=== PATIENT | female | born 1970 | race Two or more races ===

== ENCOUNTER 2017-03-07 18:03 | Emergency (ER) | payer MEDICARE ==
[~2017-03-07] VITALS: Ht 160 cm; Wt 116.6 kg
[~2017-03-07 18:03] MED LIST: ALPR0.25 PO; AMLO10TA4 PO; BUSP30TA PO; CARV12.5 PO; CEFP200T PO; CLON0.5T3 PO; DIPH1TAB PO; FENO54TA PO; FURO80TA3 PO; GABA600T2 PO; HYDR-2867 PO; INSU100C4 SQ; INSU100I27 SQ; LEVO150T PO; LIPITOR80 MG PO; LISI10TA2 PO; POTA20TA84 PO; QUET25TA5 PO; QUET300T5 PO; SEVE800T9 PO; VALS160T3 PO; VIT1TABL57 PO; VIT1TABL71 PO
[2017-03-07 19:00] VITALS: BP 202/91
[2017-03-07] MEDS ORDERED: oxyCODONE/APAP 5/325 1 TAB TABLET PO ONE (19:15)
[2017-03-07] MEDS ORDERED: OXYC-323 PO (19:29)
--- NOTE | 2017-03-07 19:30 | PHYS DOC ---
Past Medical History Past Medical History: Diabetes-Type I, DVT, High Cholesterol, Hypertension, Renal Disease, Other Additional Past Medical Histor: Graves disease Past Surgical History: Other Additional Past Surgical Histo: Nodules removed from thyroid, Dailysis cath placed&removed, shunt in L)arm Alcohol Use: None Drug Use: None Adult General Chief Complaint Chief Complaint: FOOT INJURY PAIN HPI HPI Patient is a 46 year old female with a history of diabetes type 2, hypertension , high cholesterol, who presents today with moderate left fifth toe pain that began 2 days ago after she stubbed her toe on her dialysis machine at home. Review of Systems Review of Systems Constitutional: Denies fever or chills [] Musculoskeletal: Left fifth toe pain Integument: Denies rash or skin lesions [] Neurologic: Denies headache, focal weakness or sensory changes [] Endocrine: Denies polyuria or polydipsia [] Current Medications Current Medications Current Medications Medications (Trade) Dose Ordered Sig/Antolin Start Time Stop Time Status Last Admin Dose Admin Oxycodone/ Acetaminophen (Percocet 5/325) 1 tab 1X ONCE 03/07/17 19:15 03/07/17 19:16 DC Allergies Allergies Allergies Coded Allergies Type Severity Reaction Last Updated Verified codeine Allergy Intermediate hives 10/22/15 Yes Physical Exam Physical Exam Constitutional: Well developed, well nourished, no acute distress, non-toxic appearance. [] HENT: Normocephalic, atraumatic, bilateral external ears normal, oropharynx moist, no oral exudates, nose normal. [] Cardiovascular:Heart rate regular rhythm, no murmur [] Lungs & Thorax: Bilateral breath sounds clear to auscultation [] Skin: Warm, dry, no erythema, no rash. [] Back: No tenderness, no CVA tenderness. [] Extremities: Left foot with bruising on the fourth and fifth toes. Patient has generalized edema from a water retention due to kidney failure. She is currently on dialysis. Tenderness on palpation of the left fourth and fifth toes. No pain or tenderness on palpation of the navicular bone or the base of the fifth metatarsal of the left foot. +1 left pedal pulse. Cap refill less than 2 seconds the left lower extremity. Sensation intact to the left lower extremity. Neurologic: Alert and oriented X 3, normal motor function, normal sensory function, no focal deficits noted. [] Psychologic: Affect normal, judgement normal, mood normal. [] Current Patient Data Vital Signs Vital Signs Date Time Temp Pulse Resp B/P (MAP) Pulse Ox O2 Delivery O2 Flow Rate FiO2 03/07/17 19:00 98.5 84 18 97 Room Air 98.5 EKG EKG [] Radiology/Procedures Radiology/Procedures [] Course & Med Decision Making Course & Med Decision Making Pertinent Labs and Imaging studies reviewed. (See chart for details) This is a home dialysis patient who presents today with left foot pain after stubbing her fifth toe on her dialysis machine 2 days ago. Left foot x-rays interpreted by Dr. Connors were noted for fracture of the left fifth mid phalanx. Patient was placed in an orthopedic shoe by the ED RN. Neurovascular exam done by me is normal, cap refill less than 2 seconds. Ice elevation encouraged. Discharged with oxycodone as needed for pain. Follow-up with orthopedic doctor we provided by calling the office tomorrow. Patient's blood pressure was 202/91 with a heart rate of 84. She states she is due for her evening blood pressure medicine. We encourage her to take them as soon as she gets home. Dragon Disclaimer Dragon Disclaimer This electronic medical record was generated, in whole or in part, using a voice recognition dictation system. Departure Departure Impression: Primary Impression: Fracture of fifth toe, left, closed Additional Impression: Accelerated hypertension Disposition: 01 HOME, SELF-CARE Condition: STABLE Referrals: MAURICE NARAYANAN (PCP) CHRISSIE ESPINOSA II, MD Call his office tomorrow and get a follow-up appointment Patient Instructions: Foot Fracture-Brief, Hypertension Additional Instructions: You were seen for left fifth toe fracture. Please contact the provided orthopedic doctor tomorrow morning and get a follow-up appointment. Wear the orthopedic shoe provided as tolerated. Your blood pressure was elevated in the ED at 202/91. Ensure you take your medicine when you get home and follow up with your doctor as soon as you can. Scripts Oxycodone/Apap 5-325 (PERCOCET 5-325 MG TABLET) 1 Each Tablet 1-2 TAB PO Q4-6HRS, #20 TAB Prov: SINDY JONES SOCIAL SERVICES AIDE 03/07/17 Problem Qualifiers Primary Impression: Fracture of fifth toe, left, closed Encounter type: initial encounter Qualified Codes: S92.502A - Displaced unspecified fracture of left lesser toe(s), initial encounter for closed fracture SINDY JONES SOCIAL SERVICES AIDE Mar 07, 2017 19:29
--- NOTE | 2017-03-08 08:27 | RAD ---
Left foot, 3 views, 03/07/2017: History: Injury, pain There is a fracture of the proximal phalanx of the little toe. There is very little displacement at the fracture site. No other acute fracture or dislocation is identified. There are mild scattered degenerative changes. There is moderate subcutaneous edema about the foot. Moderate arterial calcifications are present. IMPRESSION: Acute fracture of the proximal phalanx of the left little toe.
== END 2017-03-07 19:56 | disposition home or self-care (01) ==
LOC: ER 18:03
DX: S92.522A Displaced fracture of middle phalanx of left lesser toe(s), initial encounter for closed fracture (principal); I12.9 Hypertensive chronic kidney disease with stage 1 through stage 4 chronic kidney disease, or unspecified chronic kidney disease; E10.29 Type 1 diabetes mellitus with other diabetic kidney complication; N28.9 Disorder of kidney and ureter, unspecified; E78.00 Pure hypercholesterolemia, unspecified; Z86.718 Personal history of other venous thrombosis and embolism; Z99.2 Dependence on renal dialysis; Z88.6 Allergy status to analgesic agent; W22.8XXA Striking against or struck by other objects, initial encounter; Y93.89 Activity, other specified; Y99.8 Other external cause status; Y92.89 Other specified places as the place of occurrence of the external cause
CPT/HCPCS: 73630; 99284-25

== ENCOUNTER 2017-03-30 11:09 | Inpatient (IN) | payer MEDICARE ==
[~2017-03-30] VITALS: Ht 160 cm; Wt 111.1 kg
[~2017-03-30 11:09] MED LIST changes: +OXYC-323 PO
[2017-03-30] MEDS ORDERED: IPRATRPIUM/ALBUTEROL 0.5/2.5MG 3 ML NEBU. NEB ONE (11:30)
--- NOTE | 2017-03-30 12:14 | RAD ---
Indication chest pain and shortness of breath. A single view of the chest was obtained and is compared to an examination October 05, 2016. There is generalized enlargement of the cardiac silhouette similar to slightly worse than on the previous exam. There is probable superimposed mild pulmonary vascular congestion. There is no consolidated pneumonia. Significant pleural fluid is not seen. There is no pneumothorax. IMPRESSION: Enlarged cardiac silhouette. Mild pulmonary vascular congestion
--- NOTE | 2017-03-30 12:36 | EKG ---
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
--- NOTE | 2017-03-30 12:38 | EKG ---
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
[2017-03-30] MEDS ORDERED: FUROSEMIDE 20 MG/2 ML VIAL. IVP ONE (12:45)
[2017-03-30 13:10] LABS: BASO # 0.1 x10^3/uL (0.0-0.2); BASO % 1 % (0-3); EOS % 2 % (0-3); HEMATOCRIT 31.9 % (36.0-47.0); HEMOGLOBIN 10.1 g/dL (12.0-15.5); LYMPH # 1.2 x10^3/uL (1.0-4.8); LYMPH % 20 % (24-48); MEAN CORPUSCULAR HEMOGLOBIN 27 pg (25-35); MEAN CORPUSCULAR HGB CONC 32 g/dL (31-37); MEAN CORPUSCULAR VOLUME 86 fL (79-100); MONO % 11 % (0-9); NEUT % 66 % (31-73); PLATELET COUNT 380 x10^3/uL (140-400); RED BLOOD COUNT 3.73 x10^6/uL (3.50-5.40); RED CELL DISTRIBUTION WIDTH 16.9 % (11.5-14.5); WHITE BLOOD COUNT 6.1 x10^3/uL (4.0-11.0)
[2017-03-30 13:28] LABS: ALBUMIN 2.3 g/dL (3.4-5.0); CALCIUM 6.6 mg/dL (8.5-10.1); CREATININE 6.3 mg/dL (0.6-1.0); DIRECT BILIRUBIN 0.1 mg/dL (0.0-0.2); GFR 7.1; POTASSIUM 5.9 mmol/L (3.5-5.1); TOTAL BILIRUBIN 0.1 mg/dL (0.2-1.0); TOTAL PROTEIN 7.3 g/dL (6.4-8.2)
--- NOTE | 2017-03-30 13:36 | PHYS DOC ---
Past Medical History Past Medical History: Diabetes-Type I, Diabetes-Type II, DVT, High Cholesterol , Hypertension, Hypothyroid, Renal Disease, Renal Failure, Other Additional Past Medical Histor: Graves disease,OVERACTIVE THYROID/RADIATION [place] Past Surgical History: Tonsillectomy, Other Additional Past Surgical Histo: dialysis cath abd,graft l arm,tumor removed from abd,knee,carpal tunnel Alcohol Use: None Drug Use: None Adult General Chief Complaint Chief Complaint: SHORTNESS OF BREATH HPI HPI 46-year-old female presenting to the emergency department today with shortness of breath chest pain and weight gain. This started 2 days ago. She describes the pain is intermittent substernal nonradiating and without alleviating factors. She has a history of end-stage renal disease and performs peritoneal dialysis daily. She complains of leg swelling on both sides over the past week. Review of systems is negative for fevers chills abdominal pain nausea vomiting or diaphoresis. All other review of systems is negative unless otherwise noted in history of present illness. ED course: 46-year-old female with end-stage renal disease presenting to the emergency department with weight gain and bilateral pedal edema and shortness of breath. Patient was hypoxic upon arrival and placed on 2 L nasal cannula. Hypertensive. Clinical presentation suggestive of volume overload either from renal disease or congestive heart failure. EKG obtained which was unremarkable. ST segments congruent. Sinus rhythm with a regular rate. Chest x-ray obtained which showed fluid overload. She was given IV Lasix in the emergency department. The patient was then admitted for further evaluation workup and care. Review of Systems Review of Systems SEE ABOVE. Current Medications Current Medications Current Medications Medications (Trade) Dose Ordered Sig/Antolin Start Time Stop Time Status Last Admin Dose Admin Albuterol Sulfate (Ventolin Neb Soln) 10 mg 1X ONCE 03/30/17 13:45 03/30/17 13:46 DC 03/30/17 14:04 10 MG Albuterol/ Ipratropium (Duoneb) 3 ml 1X ONCE 03/30/17 11:30 03/30/17 11:31 DC 03/30/17 11:37 3 ML Calcium Gluconate (Calcium Gluconate) 1,000 mg 1X ONCE 03/30/17 13:45 03/30/17 13:46 DC 03/30/17 14:00 1,000 MG Dextrose (Dextrose 50%-Water Syringe) 25 gm 1X ONCE 03/30/17 13:45 03/30/17 13:46 DC 03/30/17 14:00 25 GM Furosemide (Lasix) 20 mg 1X ONCE 03/30/17 12:45 03/30/17 12:46 DC 03/30/17 13:04 20 MG Insulin Human Regular (NovoLIN R VIAL) 10 unit 1X ONCE 03/30/17 13:45 03/30/17 13:46 DC 03/30/17 14:18 10 UNIT Morphine Sulfate 2 mg PRN Q2HR PRN 03/30/17 13:45 03/31/17 13:44 03/30/17 15:38 2 MG Ondansetron HCl (Zofran) 4 mg PRN Q8HRS PRN 03/30/17 13:45 03/31/17 13:44 Sodium Bicarbonate 50 meq 1X ONCE 03/30/17 13:45 03/30/17 13:46 DC 03/30/17 14:00 50 MEQ Allergies Allergies Allergies Coded Allergies Type Severity Reaction Last Updated Verified codeine Allergy Intermediate hives 10/22/15 Yes Physical Exam Physical Exam SEE ABOVE Constitutional: Well developed, well nourished, no acute distress, non-toxic appearance. HENT: Normocephalic, atraumatic, bilateral external ears normal, oropharynx moist, no oral exudates, nose normal. [] Eyes: PERRLA, EOMI, conjunctiva normal, no discharge. Neck: Normal range of motion, no tenderness, supple, no stridor. Cardiovascular:Heart rate regular rhythm, no murmur Lungs & Thorax: crackles bilaterally Abdomen: Bowel sounds normal, soft, no tenderness, no masses, no pulsatile masses. [] Skin: Warm, dry, no erythema, no rash. [] Back: No tenderness, no CVA tenderness. [] Extremities: No tenderness, no cyanosis, no clubbing, ROM intact, 2+ edema. Neurologic: Alert and oriented X 3, normal motor function, normal sensory function, no focal deficits noted. [] Psychologic: Affect normal, judgement normal, mood normal. [] Current Patient Data Vital Signs Vital Signs Date Time Temp Pulse Resp B/P (MAP) Pulse Ox O2 Delivery O2 Flow Rate FiO2 03/30/17 15:38 20 03/30/17 14:41 74 144/65 (91) 100 03/30/17 14:14 Nasal Cannula 2.0 03/30/17 11:09 97.6 97.6 Lab Values Laboratory Tests Test 03/30/17 12:50 White Blood Count 6.1 x10^3/uL (4.0-11.0) Red Blood Count 3.73 x10^6/uL (3.50-5.40) Hemoglobin 10.1 g/dL (12.0-15.5) L Hematocrit 31.9 % (36.0-47.0) L Mean Corpuscular Volume 86 fL (79-100) Mean Corpuscular Hemoglobin 27 pg (25-35) Mean Corpuscular Hemoglobin Concent 32 g/dL (31-37) Red Cell Distribution Width 16.9 % (11.5-14.5) H Platelet Count 380 x10^3/uL (140-400) # Neutrophils (%) (Auto) 66 % (31-73) Lymphocytes (%) (Auto) 20 % (24-48) L Monocytes (%) (Auto) 11 % (0-9) H Eosinophils (%) (Auto) 2 % (0-3) Basophils (%) (Auto) 1 % (0-3) Neutrophils # (Auto) 4.0 x10^3uL (1.8-7.7) Lymphocytes # (Auto) 1.2 x10^3/uL (1.0-4.8) Monocytes # (Auto) 0.7 x10^3/uL (0.0-1.1) Eosinophils # (Auto) 0.1 x10^3/uL (0.0-0.7) Basophils # (Auto) 0.1 x10^3/uL (0.0-0.2) Sodium Level 144 mmol/L (136-145) Potassium Level 5.9 mmol/L (3.5-5.1) H Chloride Level 108 mmol/L (98-107) H Carbon Dioxide Level 23 mmol/L (21-32) Anion Gap 13 (6-14) Blood Urea Nitrogen 57 mg/dL (7-20) H Creatinine 6.3 mg/dL (0.6-1.0) H Estimated GFR (Cockcroft-Gault) 7.1 Glucose Level 98 mg/dL (70-99) Calcium Level 6.6 mg/dL (8.5-10.1) L Total Bilirubin 0.1 mg/dL (0.2-1.0) L Direct Bilirubin 0.1 mg/dL (0.0-0.2) Aspartate Amino Transferase (AST) 17 U/L (15-37) Alanine Aminotransferase (ALT) 20 U/L (14-59) Alkaline Phosphatase 68 U/L (46-116) Troponin I Quantitative 0.082 ng/mL (0.000-0.055) XF-Wmh-Q-Type Natriuretic Peptide 42611 pg/mL (0-124) H Total Protein 7.3 g/dL (6.4-8.2) Albumin 2.3 g/dL (3.4-5.0) L Lipase 53 U/L (73-393) L Laboratory Tests 03/30/17 12:50 Laboratory Tests 03/30/17 12:50 EKG EKG [] Radiology/Procedures Radiology/Procedures [] Course & Med Decision Making Course & Med Decision Making Pertinent Labs and Imaging studies reviewed. (See chart for details) [] Dragon Disclaimer Dragon Disclaimer This electronic medical record was generated, in whole or in part, using a voice recognition dictation system. Departure Departure Impression: Primary Impression: ESRD on peritoneal dialysis Additional Impressions: Pulmonary edema Volume overload Disposition: 09 ADMITTED INPATIENT Admitting Physician: Houston Gordon Condition: IMPROVED Referrals: MAURICE NARAYANAN (PCP) Problem Qualifiers PRERNA YOUSIF MD Mar 30, 2017 13:36
[2017-03-30] MEDS ORDERED: INSULIN REGULAR 100 UNIT/ML 10ML VIAL. IV ONE (13:45)
[2017-03-30] MEDS ORDERED: DEXTROSE 50% 25 GM / 50ML DISP.SYRIN. IV ONE ×2 (13:45→17:45)
[2017-03-30] MEDS ORDERED: SODIUM BICARB ADULT 8.4% 50 MEQ/50 ML DISP.SYRIN. IV ONE (13:45)
[2017-03-30] MEDS ORDERED: ALBUTEROL SULFATE 2.5 MG/3 ML NEBU. CONT NEB ONE (13:45)
[2017-03-30] MEDS ORDERED: ONDANSETRON PF 4 MG/2 ML VIAL. IV PRN (13:45)
[2017-03-30] MEDS ORDERED: CALCIUM GLUCONATE 1,000 MG/10 ML VIAL. IVP ONE (13:45)
[2017-03-30] MEDS: MORPHINE SULFATE 2 MG/ML DISP.SYRIN. IV PRN ×3 (15:38→22:22)
[2017-03-30] MEDS ORDERED: oxyCODONE/APAP 5/325 1 TAB TABLET PO PRN (17:30)
[2017-03-30] MEDS ORDERED: DEXTROSE 50% 25 GM / 50ML DISP.SYRIN. IV PRN (17:45)
--- NOTE | 2017-03-30 17:46 | PDOC1 ---
HISTORY AND PHYSICAL Chief Complaint Chief Complaint This is 46 year old female has been admitted with a chief complaint of OB going for 1 week ,getting worse hard to breath without sitting up. gained 20 pounds in 1 month she is ESRD on peritonial dialysis for last 1 yr, prior to that she was on hemodialysis. c/o swelling in extremities , she was found to be fluid over load with chf and pul edema Problems: Past Medical History Cardiovascular: CHF, HTN Heme/Onc: Other (castlemans disease) Musculoskeletal: Osteoarthritis Renal/: Chronic renal insuff Endocrine: Diabetes, Hypothyroidism Past Surgical History PSH AV shunt left arm PD catheter abdomen. abd surgery lymphonode biopsy Castleman disease Past Surgical History: Tonsillectomy, Other Past Family History Family History: No Significant, Diabetes, Kidney Disease Past Social History PSH no smoking ,no alcohol Review of Symptoms Review of Symptoms General ROS: positive for - Psychological ROS: negative Ophthalmic ROS: negative ENT ROS: negative Allergy and Immunology ROS: negative Hematology and Lymphatic: negative Endocrine ROS: negative Respiratory ROS: no cold, cough, dyspnea. Cardiovascular ROS: no chest pain or dyspnea on exertion Gastrointestinal ROS: no abdominal pain, change in bowel habits, or black or bloody stools Genito-Urinary ROS: no dysuria, trouble voiding, or hematuria Musculoskeletal ROS: no pain Neurological ROS: negative Dermatological ROS: no rash Medications Current Medications Albuterol Sulfate (Ventolin Neb Soln) 10 mg 1X ONCE CONT NEB Last administered on 03/30/17 14:04; Start 03/30/17 at 13:45; Stop 03/30/17 at 13:46; Status DC Albuterol/ Ipratropium (Duoneb) 3 ml 1X ONCE NEB Last administered on 11:37; Start 03/30/17 at 11:30; Stop 03/30/17 at 11:31; Status DC Amlodipine Besylate (Norvasc) 10 mg DAILY PO ; Start 03/31/17 at 09:00; Status UNV Calcium Gluconate (Calcium Gluconate) 1,000 mg 1X ONCE IVP Last administered on 03/30/17 14:00; Start 03/30/17 at 13:45; Stop 03/30/17 at 13:46; Status DC Carvedilol (Coreg) 12.5 mg BID PO ; Start 03/30/17 at 21:00; Status UNV Dextrose (Dextrose 50%-Water Syringe) 25 gm 1X ONCE IV Last administered on 14:00; Start 03/30/17 at 13:45; Stop 03/30/17 at 13:46; Status DC Dextrose (Dextrose 50%-Water Syringe) 25 gm 1X ONCE IV ; Start 03/30/17 at 17:45 ; Stop 03/30/17 at 17:46; Status UNV Diphenoxylate HCl/ Atropine (Lomotil) 1 tab TID PO ; Start 03/30/17 at 21:00; Status UNV Furosemide (Lasix) 20 mg 1X ONCE IVP Last administered on 03/30/17 13:04; Start 03/30/17 at 12:45; Stop 03/30/17 at 12:46; Status DC Insulin Human Regular (NovoLIN R VIAL) 10 unit 1X ONCE IV Last administered on 03/30/17 14:18; Start 03/30/17 at 13:45; Stop 03/30/17 at 13:46; Status DC Levothyroxine Sodium (Synthroid) 300 mcg DAILY06 PO ; Start 03/31/17 at 06:00; Status UNV Lisinopril (Prinivil) 10 mg DAILY PO ; Start 03/31/17 at 09:00; Status UNV Morphine Sulfate 2 mg PRN Q2HR PRN IV PAIN Last administered on 03/30/17 15:38 ; Start 03/30/17 at 13:45; Stop 03/31/17 at 13:44 Non-Formulary Medication 1 each DAILY PO ; Start 03/31/17 at 09:00; Status UNV Non-Formulary Medication 1 tab DAILY PO ; Start 03/31/17 at 09:00; Status UNV Non-Formulary Medication 2 tab HS PO ; Start 03/30/17 at 21:00; Status UNV Non-Formulary Medication 10 unit TIDBFRMEAL SQ ; Start 03/31/17 at 07:30; Status UNV Non-Formulary Medication 40 mg QHS PO ; Start 03/30/17 at 21:00; Status UNV Non-Formulary Medication 300 mg HS PO ; Start 03/30/17 at 21:00; Status UNV Ondansetron HCl (Zofran) 4 mg PRN Q8HRS PRN IV NAUSEA/VOMITING; Start 03/30/17 at 13:45; Stop 03/31/17 at 13:44 Oxycodone/ Acetaminophen (Percocet 5/325) 1 tab QID PRN PO PAIN; Start 03/30/17 at 17:30; Status UNV Quetiapine Fumarate (SEROquel) 25 mg DAILY08 PO ; Start 03/31/17 at 08:00; Status UNV Sevelamer Carbonate (Renvela) 1,600 mg TIDBFRMEAL PO ; Start 03/31/17 at 07:30; Status UNV Sodium Bicarbonate 50 meq 1X ONCE IV Last administered on 03/30/17t 14:00; Start 03/30/17 at 13:45; Stop 03/30/17 at 13:46; Status DC Allergy Allergies Coded Allergies Type Severity Reaction Last Updated Verified codeine Allergy Intermediate hives 10/22/15 Yes Physical Exam Physical Exam General appearance - alert,well appearing, and in mild distress and oriented to person, place, and time Mental Status - alert, oriented to person, place, and time, affect appropriate to mood Head - normal Chest - clear to auscultation, mild wheezes, rales or rhonchi, present . Heart - S1 and S2 normal Abdomen - PD cathter present soft, nontender, distended, no masses or organomegaly Neurological - alert and oriented Musculoskeletal - no muscular tenderness noted Extremities - 2+pedal edema Skin - warm and dry. AV shunt with thrill present left arm Labs Laboratory Tests Test 03/30/17 12:50 03/30/17 17:33 White Blood Count 6.1 x10^3/uL (4.0-11.0) Red Blood Count 3.73 x10^6/uL (3.50-5.40) Hemoglobin 10.1 g/dL (12.0-15.5) Hematocrit 31.9 % (36.0-47.0) Mean Corpuscular Volume 86 fL (79-100) Mean Corpuscular Hemoglobin 27 pg (25-35) Mean Corpuscular Hemoglobin Concent 32 g/dL (31-37) Red Cell Distribution Width 16.9 % (11.5-14.5) Platelet Count 380 x10^3/uL (140-400) Neutrophils (%) (Auto) 66 % (31-73) Lymphocytes (%) (Auto) 20 % (24-48) Monocytes (%) (Auto) 11 % (0-9) Eosinophils (%) (Auto) 2 % (0-3) Basophils (%) (Auto) 1 % (0-3) Neutrophils # (Auto) 4.0 x10^3uL (1.8-7.7) Lymphocytes # (Auto) 1.2 x10^3/uL (1.0-4.8) Monocytes # (Auto) 0.7 x10^3/uL (0.0-1.1) Eosinophils # (Auto) 0.1 x10^3/uL (0.0-0.7) Basophils # (Auto) 0.1 x10^3/uL (0.0-0.2) Sodium Level 144 mmol/L (136-145) Potassium Level 5.9 mmol/L (3.5-5.1) Chloride Level 108 mmol/L (98-107) Carbon Dioxide Level 23 mmol/L (21-32) Anion Gap 13 (6-14) Blood Urea Nitrogen 57 mg/dL (7-20) Creatinine 6.3 mg/dL (0.6-1.0) Estimated GFR (Cockcroft-Gault) 7.1 Glucose Level 98 mg/dL (70-99) Calcium Level 6.6 mg/dL (8.5-10.1) Total Bilirubin 0.1 mg/dL (0.2-1.0) Direct Bilirubin 0.1 mg/dL (0.0-0.2) Aspartate Amino Transf (AST/SGOT) 17 U/L (15-37) Alanine Aminotransferase (ALT/SGPT) 20 U/L (14-59) Alkaline Phosphatase 68 U/L (46-116) Troponin I Quantitative 0.082 ng/mL (0.000-0.055) MD-Hzg-H-Type Natriuretic Peptide 03474 pg/mL (0-124) Total Protein 7.3 g/dL (6.4-8.2) Albumin 2.3 g/dL (3.4-5.0) Lipase 53 U/L (73-393) Glucose (Fingerstick) 68 mg/dL (70-99) Laboratory Tests Test 03/30/17 12:50 03/30/17 17:33 White Blood Count 6.1 x10^3/uL (4.0-11.0) Red Blood Count 3.73 x10^6/uL (3.50-5.40) Hemoglobin 10.1 g/dL (12.0-15.5) Hematocrit 31.9 % (36.0-47.0) Mean Corpuscular Volume 86 fL (79-100) Mean Corpuscular Hemoglobin 27 pg (25-35) Mean Corpuscular Hemoglobin Concent 32 g/dL (31-37) Red Cell Distribution Width 16.9 % (11.5-14.5) Platelet Count 380 x10^3/uL (140-400) Neutrophils (%) (Auto) 66 % (31-73) Lymphocytes (%) (Auto) 20 % (24-48) Monocytes (%) (Auto) 11 % (0-9) Eosinophils (%) (Auto) 2 % (0-3) Basophils (%) (Auto) 1 % (0-3) Neutrophils # (Auto) 4.0 x10^3uL (1.8-7.7) Lymphocytes # (Auto) 1.2 x10^3/uL (1.0-4.8) Monocytes # (Auto) 0.7 x10^3/uL (0.0-1.1) Eosinophils # (Auto) 0.1 x10^3/uL (0.0-0.7) Basophils # (Auto) 0.1 x10^3/uL (0.0-0.2) Sodium Level 144 mmol/L (136-145) Potassium Level 5.9 mmol/L (3.5-5.1) Chloride Level 108 mmol/L (98-107) Carbon Dioxide Level 23 mmol/L (21-32) Anion Gap 13 (6-14) Blood Urea Nitrogen 57 mg/dL (7-20) Creatinine 6.3 mg/dL (0.6-1.0) Estimated GFR (Cockcroft-Gault) 7.1 Glucose Level 98 mg/dL (70-99) Calcium Level 6.6 mg/dL (8.5-10.1) Total Bilirubin 0.1 mg/dL (0.2-1.0) Direct Bilirubin 0.1 mg/dL (0.0-0.2) Aspartate Amino Transf (AST/SGOT) 17 U/L (15-37) Alanine Aminotransferase (ALT/SGPT) 20 U/L (14-59) Alkaline Phosphatase 68 U/L (46-116) Troponin I Quantitative 0.082 ng/mL (0.000-0.055) CD-Sqd-M-Type Natriuretic Peptide 11010 pg/mL (0-124) Total Protein 7.3 g/dL (6.4-8.2) Albumin 2.3 g/dL (3.4-5.0) Lipase 53 U/L (73-393) Glucose (Fingerstick) 68 mg/dL (70-99) Vitals Vital Signs Date Time Temp Pulse Resp B/P (MAP) Pulse Ox O2 Delivery O2 Flow Rate FiO2 03/30/17 15:38 20 03/30/17 14:41 74 144/65 (91) 100 03/30/17 14:14 Nasal Cannula 2.0 03/30/17 11:09 97.6 97.6 VTE Prophylaxis VTE Prophylaxis Devices: Yes VTE Pharmacological Prophylaxi: Yes Assessment Assessment IMP: Ac pul edema Diastolic heart failure, ac on chronic Esrd on PD DM HTN schizophrenia Castleman disease Plan Plan ECHO for LVF cardiology consult iv lasix dialysis HD while in hospital cardiology consult renal consult DVT prevention. see orders insulin with sliding scale For more details regarding further plans, please refer to the orders. BETHANY BEDOLLA MD Mar 30, 2017 17:46
[2017-03-30 19:00] VITALS: BP 134/100
[2017-03-30] MEDS: CARVEDILOL 12.5 MG TABLET. PO SCH (19:00)
[2017-03-30] MEDS ORDERED: FUROSEMIDE 40 MG/4 ML VIAL. IVP ONE (21:00)
[2017-03-30] MEDS ORDERED: hydrALAZINE 20 MG/ML VIAL. IVP PRN (21:00)
[2017-03-30] MEDS ORDERED: ENOXAPARIN 40 MG/0.4 ML SYRINGE. SQ SCH (21:00)
[2017-03-30] MEDS: DIPHENOXYLATE/ATROPINE TABLET. PO SCH (21:00)
[2017-03-30] MEDS: ATORVASTATIN CALCIUM 40 MG TABLET. PO SCH (21:00)
[2017-03-30] MEDS ORDERED: PROCHLORPERAZINE 10 MG/2 ML VIAL. IV PRN (21:15)
[2017-03-30 21:55] VITALS: BP 194/88
[2017-03-30] MEDS ORDERED: NITROGLYCERIN SUBLINGUAL 0.4 MG BOTTLE OF 25. SL ONE (21:55)
[2017-03-30] MEDS: NITROGLYCERIN SUBLINGUAL 0.4 MG BOTTLE OF 25. SL PRN ×2 (22:01→22:09)
[2017-03-30 22:05] VITALS: BP 175/83
[2017-03-30] MEDS: QUEtiapine 100 MG TABLET. PO SCH (22:33)
[2017-03-30] MEDS: HEPARIN PF for SUB-Q USE 5,000 UNIT/0.5 ML VIAL. SQ SCH (22:36)
[2017-03-30 23:00] VITALS: BP 175/80
[2017-03-30 23:18] LABS: CKMB MASS 23.2 ng/mL (0.0-3.6)
[2017-03-31 01:52] LABS: BASO % 1 % (0-3); EOS % 0 % (0-3); HEMATOCRIT 29.5 % (36.0-47.0); LYMPH % 14 % (24-48); MEAN CORPUSCULAR HEMOGLOBIN 27 pg (25-35); MEAN CORPUSCULAR HGB CONC 31 g/dL (31-37); MEAN CORPUSCULAR VOLUME 88 fL (79-100); MONO % 6 % (0-9); NEUT % 80 % (31-73); PLATELET COUNT 313 x10^3/uL (140-400); RED BLOOD COUNT 3.37 x10^6/uL (3.50-5.40); RED CELL DISTRIBUTION WIDTH 16.9 % (11.5-14.5); WHITE BLOOD COUNT 7.1 x10^3/uL (4.0-11.0)
[2017-03-31 02:12] LABS: CALCIUM 7.1 mg/dL (8.5-10.1); CREATININE 6.4 mg/dL (0.6-1.0); POTASSIUM 5.8 mmol/L (3.5-5.1)
[2017-03-31 02:55] LABS: CHOLESTEROL/HDL RATIO 3.4
[2017-03-31 03:00] VITALS: BP 109/57
[2017-03-31] MEDS ORDERED: BUSP15TA PO (03:11)
[2017-03-31] MEDS ORDERED: INSU100V13 SQ (03:15)
[2017-03-31] MEDS: LEVOTHYROXINE 150 MCG TABLET PO SCH (06:10)
[2017-03-31] MEDS: HEPARIN PF for SUB-Q USE 5,000 UNIT/0.5 ML VIAL. SQ SCH ×3 (06:11→21:34)
--- NOTE | 2017-03-31 06:16 | EKG ---
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
[2017-03-31 07:00] VITALS: BP 139/73
[2017-03-31] MEDS: SEVELAMER CARBONATE 800 MG TABLET. PO SCH ×3 (07:30→16:30)
[2017-03-31] MEDS: INSULIN ASPART 300 UNITS/3 ML INSULN.PEN SQ SCH ×6 (07:30→17:00)
--- NOTE | 2017-03-31 07:54 | RAD ---
Portable abdomen, 03/31/2017: History: Renal failure The study is partially compromised by patient motion artifact. A peritoneal dialysis catheter is in place extending into the mid pelvis on the left. The abdominal gas pattern is unremarkable. There is no evidence of organomegaly. Lower pelvic calcifications are compatible with phleboliths. IMPRESSION: 1. A peritoneal dialysis type catheter extends into the pelvis. 2. No acute abdominal abnormality is detected.
[2017-03-31] MEDS: QUEtiapine 25 MG TABLET. PO SCH (08:26)
[2017-03-31] MEDS: GABAPENTIN 300 MG CAPSULE. PO SCH (08:28)
[2017-03-31] MEDS: CARVEDILOL 12.5 MG TABLET. PO SCH ×2 (08:28→17:00)
[2017-03-31] MEDS: DIPHENOXYLATE/ATROPINE TABLET. PO SCH ×3 (08:29→21:27)
[2017-03-31] MEDS: amLODIPine BESYLATE 10 MG TABLET PO SCH (08:30)
[2017-03-31] MEDS: FUROSEMIDE 40 MG/4 ML VIAL. IVP SCH ×2 (08:34→14:00)
[2017-03-31] MEDS: FOLIC/VIT B COMP W-C (RENAL) TABLET. PO SCH (08:41)
[2017-03-31] MEDS ORDERED: LISINOPRIL 10 MG TABLET PO SCH (09:00)
[2017-03-31] MEDS ORDERED: LOSARTAN POTASSIUM 50 MG TABLET. PO SCH ×2 (09:00→14:00)
--- NOTE | 2017-03-31 10:16 | PDOC2 ---
EDDALIA GARRISON DONOR SPECIALIST 03/31/17 1016: CARDIAC CONSULT DATE OF CONSULT Date of Consult DATE: 03/31/17 TIME: 10:14 REASON FOR CONSULT Reason for Consult: Positive troponin REFERRING PHYSICIAN Referring Physician: Dr. Rincon SOURCE Source: Chart review, Patient HISTORY OF PRESENT ILLNESS HISTORY OF PRESENT ILLNESS This is a 46 yo male who presented with complaints of shortness of breath. Has been ongoing for the last week or so. Worse since Monday. Associated with orthopnea. Has had LE edema for the last 2 weeks. Nausea and vomiting intermittently for the last week. Is ESRD with PD. Reports compliance although "macing isn't working right" for the last 3 weeks. Denies any chest pain, palpitations, dizziness, or diaphoresis. Reports compliance with medications. Was previously on lisinopril; converted to Losartan. Synthroid recently from 300mcg to 100mcg. PAST MEDICAL HISTORY Cardiovascular: CHF (diastolic ), HTN, Hyperlipidemia Pulmonary: Other (FARAZ) CENTRAL NERVOUS SYSTEM: Periperal neuropathy GI: GERD Heme/Onc: Other (DVT, Castleman's disease) Psych: Anxiety, Bipolar, Schizophrenia Renal/: Chronic renal insuff Endocrine: Diabetes, Other (thyroid CA) PAST SURGICAL HISTORY Past Surgical History: Tonsillectomy, Other (PD cath and HD access) FAMILY HISTORY Family History: Depression, Hypertension SOCIAL HISTORY Smoke: Quit (3 years ago. ) ALCOHOL: none Drugs: None Lives: with Family CURRENT MEDICATIONS CURRENT MEDICATIONS Current Medications Medications (Trade) Dose Ordered Sig/[place] Route PRN Reason Start Time Stop Time Status Last Admin Dose Admin Albuterol/ Ipratropium (Duoneb) 3 ml 1X ONCE NEB 03/30/17 11:30 03/30/17 11:31 DC 03/30/17 11:37 Furosemide (Lasix) 20 mg 1X ONCE IVP 03/30/17 12:45 03/30/17 12:46 DC 03/30/17 13:04 Sodium Bicarbonate 50 meq 1X ONCE IV 03/30/17 13:45 03/30/17 13:46 DC 03/30/17 14:00 Calcium Gluconate (Calcium Gluconate) 1,000 mg 1X ONCE IVP 03/30/17 13:45 03/30/17 13:46 DC 03/30/17 14:00 Albuterol Sulfate (Ventolin Neb Soln) 10 mg 1X ONCE CONT NEB 03/30/17 13:45 03/30/17 13:46 DC 03/30/17 14:04 Insulin Human Regular (NovoLIN R VIAL) 10 unit 1X ONCE IV 03/30/17 13:45 03/30/17 13:46 DC 03/30/17 14:18 Dextrose (Dextrose 50%-Water Syringe) 25 gm 1X ONCE IV 03/30/17 13:45 03/30/17 13:46 DC 03/30/17 14:00 Ondansetron HCl (Zofran) 4 mg PRN Q8HRS PRN IV NAUSEA/VOMITING 03/30/17 13:45 03/31/17 13:44 03/30/17 18:30 Morphine Sulfate 2 mg PRN Q2HR PRN IV PAIN 03/30/17 13:45 03/31/17 13:44 03/30/17 22:22 Amlodipine Besylate (Norvasc) 10 mg DAILY PO 03/31/17 09:00 03/31/17 08:30 Carvedilol (Coreg) 12.5 mg BIDWMEALS PO 03/30/17 19:00 03/31/17 08:28 Levothyroxine Sodium (Synthroid) 300 mcg DAILY06 PO 03/31/17 06:00 03/31/17 06:10 Quetiapine Fumarate (SEROquel) 25 mg DAILY08 PO 03/31/17 08:00 03/31/17 08:26 Gabapentin (Neurontin) 600 mg DAILY PO 03/31/17 09:00 03/31/17 08:28 Quetiapine Fumarate (SEROquel) 300 mg QHS PO 03/30/17 21:00 03/30/17 22:33 Vitamin B Complex/ Vitamin C (Nereida-Colin) 1 tab DAILY PO 03/31/17 09:00 03/31/17 08:41 Dextrose (Dextrose 50%-Water Syringe) 25 gm 1X ONCE IV 03/30/17 17:45 03/30/17 17:46 DC 03/30/17 17:45 Furosemide (Lasix) 40 mg BID92 IVP 03/31/17 09:00 03/31/17 08:34 Heparin Sodium (Porcine) (Heparin Sq) 5,000 unit Q8HRS SQ 03/30/17 22:00 03/31/17 06:11 Furosemide (Lasix) 80 mg 1X ONCE IVP 03/30/17 21:00 03/30/17 21:01 DC 03/30/17 22:11 Hydralazine HCl (Apresoline) 10 mg PRN Q4HRS PRN IVP ELEVATED BP, SEE COMMENTS 03/30/17 21:00 03/30/17 22:18 Prochlorperazine Edisylate (Compazine) 5 mg PRN Q6HRS PRN IV NAUSEA/VOMITING 03/30/17 21:15 03/30/17 22:10 Nitroglycerin (Nitrostat) 0.4 mg PRN Q5MIN PRN SL X 3 DOSES FOR CHEST PAIN 03/30/17 22:00 03/30/17 22:09 ALLERGIES ALLERGIES: Coded Allergies: codeine (Verified Allergy, Intermediate, hives, 10/22/15) Tolerates morphine ROS Review of System 14 point ROS conducted with pertinent positives noted above in HPI. PHYSICAL EXAM General: Alert, Oriented X3, Cooperative, mild distress HEENT: Atraumatic, Mucous membr. moist/pink Lungs: Other (bibasilar crackles ) Heart: Regular rate, Normal S1, Normal S2, Other (2/6 systolic murmur ) Abdomen: Soft, Other (distended ) Extremities: Normal pulses, Other (2+ bilateral LE pitting edema ) Skin: No breakdown, No significant lesion Neuro: Normal speech, Sensation intact Psych/Mental Status: Mental status NL, Mood NL MUSCULOSKELETAL: No deformity VITALS VITALS Vital Signs Date Time Temp Pulse Resp B/P (MAP) Pulse Ox O2 Delivery O2 Flow Rate FiO2 03/31/17 08:34 73 139/73 03/31/17 07:00 97.9 18 98 Room Air 97.9 03/31/17 03:00 2.0 LABS Lab: Laboratory Tests Test 03/30/17 12:50 03/30/17 17:33 03/30/17 17:59 03/30/17 18:31 White Blood Count 6.1 x10^3/uL (4.0-11.0) Red Blood Count 3.73 x10^6/uL (3.50-5.40) Hemoglobin 10.1 g/dL (12.0-15.5) Hematocrit 31.9 % (36.0-47.0) Mean Corpuscular Volume 86 fL (79-100) Mean Corpuscular Hemoglobin 27 pg (25-35) Mean Corpuscular Hemoglobin Concent 32 g/dL (31-37) Red Cell Distribution Width 16.9 % (11.5-14.5) Platelet Count 380 x10^3/uL (140-400) Neutrophils (%) (Auto) 66 % (31-73) Lymphocytes (%) (Auto) 20 % (24-48) Monocytes (%) (Auto) 11 % (0-9) Eosinophils (%) (Auto) 2 % (0-3) Basophils (%) (Auto) 1 % (0-3) Neutrophils # (Auto) 4.0 x10^3uL (1.8-7.7) Lymphocytes # (Auto) 1.2 x10^3/uL (1.0-4.8) Monocytes # (Auto) 0.7 x10^3/uL (0.0-1.1) Eosinophils # (Auto) 0.1 x10^3/uL (0.0-0.7) Basophils # (Auto) 0.1 x10^3/uL (0.0-0.2) Sodium Level 144 mmol/L (136-145) Potassium Level 5.9 mmol/L (3.5-5.1) Chloride Level 108 mmol/L (98-107) Carbon Dioxide Level 23 mmol/L (21-32) Anion Gap 13 (6-14) Blood Urea Nitrogen 57 mg/dL (7-20) Creatinine 6.3 mg/dL (0.6-1.0) Estimated GFR (Cockcroft-Gault) 7.1 Glucose Level 98 mg/dL (70-99) Calcium Level 6.6 mg/dL (8.5-10.1) Total Bilirubin 0.1 mg/dL (0.2-1.0) Direct Bilirubin 0.1 mg/dL (0.0-0.2) Aspartate Amino Transf (AST/SGOT) 17 U/L (15-37) Alanine Aminotransferase (ALT/SGPT) 20 U/L (14-59) Alkaline Phosphatase 68 U/L (46-116) Troponin I Quantitative 0.082 ng/mL (0.000-0.055) FC-Tpf-I-Type Natriuretic Peptide 16507 pg/mL (0-124) Total Protein 7.3 g/dL (6.4-8.2) Albumin 2.3 g/dL (3.4-5.0) Lipase 53 U/L (73-393) Glucose (Fingerstick) 68 mg/dL (70-99) 139 mg/dL (70-99) 118 mg/dL (70-99) Test 03/30/17 19:05 03/30/17 19:39 03/30/17 21:32 03/30/17 22:45 Troponin I Quantitative 0.081 ng/mL (0.000-0.055) 0.077 ng/mL (0.000-0.055) Glucose (Fingerstick) 113 mg/dL (70-99) 120 mg/dL (70-99) Creatine Kinase 973 U/L (26-192) Creatine Kinase MB (Mass) 23.2 ng/mL (0.0-3.6) Creatine Kinase MB Relative Index 2.4 % (0-4) Test 03/31/17 01:30 03/31/17 07:32 White Blood Count 7.1 x10^3/uL (4.0-11.0) Red Blood Count 3.37 x10^6/uL (3.50-5.40) Hemoglobin 9.0 g/dL (12.0-15.5) Hematocrit 29.5 % (36.0-47.0) Mean Corpuscular Volume 88 fL (79-100) Mean Corpuscular Hemoglobin 27 pg (25-35) Mean Corpuscular Hemoglobin Concent 31 g/dL (31-37) Red Cell Distribution Width 16.9 % (11.5-14.5) Platelet Count 313 x10^3/uL (140-400) Neutrophils (%) (Auto) 80 % (31-73) Lymphocytes (%) (Auto) 14 % (24-48) Monocytes (%) (Auto) 6 % (0-9) Eosinophils (%) (Auto) 0 % (0-3) Basophils (%) (Auto) 1 % (0-3) Neutrophils # (Auto) 5.7 x10^3uL (1.8-7.7) Lymphocytes # (Auto) 1.0 x10^3/uL (1.0-4.8) Monocytes # (Auto) 0.4 x10^3/uL (0.0-1.1) Eosinophils # (Auto) 0.0 x10^3/uL (0.0-0.7) Basophils # (Auto) 0.0 x10^3/uL (0.0-0.2) Sodium Level 144 mmol/L (136-145) Potassium Level 5.8 mmol/L (3.5-5.1) Chloride Level 108 mmol/L (98-107) Carbon Dioxide Level 24 mmol/L (21-32) Anion Gap 12 (6-14) Blood Urea Nitrogen 54 mg/dL (7-20) Creatinine 6.4 mg/dL (0.6-1.0) Estimated GFR (Cockcroft-Gault) 7.0 Glucose Level 223 mg/dL (70-99) Calcium Level 7.1 mg/dL (8.5-10.1) Troponin I Quantitative 0.071 ng/mL (0.000-0.055) Triglycerides Level 103 mg/dL (0-150) Cholesterol Level 131 mg/dL (0-200) LDL Cholesterol, Calculated 71 mg/dL (0-100) VLDL Cholesterol, Calculated 21 mg/dL (0-40) Non-HDL Cholesterol Calculated 92 mg/dL (0-129) HDL Cholesterol 39 mg/dL (40-60) Cholesterol/HDL Ratio 3.4 Thyroid Stimulating Hormone (TSH) 190.266 uIU/mL (0.358-3.74) Glucose (Fingerstick) 162 mg/dL (70-99) ECHOCARDIOGRAM ECHOCARDIOGRAM <Conclusion> The left ventricle is normal size. The left ventricular systolic function is normal and the ejection fraction is within normal range. The Ejection Fraction is 55-60%. The left ventricular diastolic function and filling is normal for age. There is no significant aortic valvular stenosis. Doppler and Color Flow revealed trace aortic regurgitation. Doppler and Color-flow revealed trace mitral regurgitation. Doppler and Color Flow revealed mild tricuspid regurgitation. The PA pressure was estimated at 54 mmHg. There is no evidence of significant pericardial effusion. DATE: 09/30/148 ASSESSMENT/PLAN ASSESSMENT/PLAN 1. Mildly elevated troponin; peaked 0.082 in the setting of CLEO 2. Acute on chronic heart failure; NT Pro BNP 30224. CXR with vascular congestion. Previous echo 10/09 with preserved LV function as noted above. Improved with diuresis. HD to commence today 3. ESRD on PD; plan to transition to HD for now. per nephrology 4. Malignant hypertension; now well- controlled 5. Hyperlipidemia; LDL= 71; statin therapy 6. Diabetes 7. Hypothyroidism: per PCP 8. Nausea/vomiting Recommendations Suspect mild troponin is type II demand ischemic secondary to CLEO and acute HF. Check echo to assess LV function/presence of WMA Add ASA. Continue BB, statin On both LUCAS and ARB. Will stop LUCAS and increase ARB. D/w nephrology Fluid offloading via HD as per nephrology Supportive care. Further recommendations pending diagnostics Problems: CLIF GONCALVES MD 03/31/17 1758: CARDIAC CONSULT ALLERGIES ALLERGIES: Coded Allergies: codeine (Verified Allergy, Intermediate, hives, 10/22/15) Tolerates morphine ASSESSMENT/PLAN ASSESSMENT/PLAN Patient seen and examined. Agree with TRAINING EXECUTIVE's assessment and plan. Mild troponin elevation most probably secondary to demand ischemia from a combination of accelerated hypertension and renal insufficiency. 2-D echo showed normal LV systolic function without any regional wall motion abnormalities. Continue fluid removal with hemodialysis for acute on chronic diastolic heart failure per nephrology team. Thank you for your consultation. Problems: DALIA WARD APRN Mar 31, 2017 10:16 CLIF GONCALVES MD Mar 31, 2017 17:58
--- NOTE | 2017-03-31 10:42 | PDOC2 ---
CONSULT Date of Consult Date of Consult DATE: 03/31/17 TIME: 10:42 Reason for Consult Reason for Consult: ESRD and ^ed K Referring Physician Referring Physician: Dr felder Identification/Chief Complaint Chief Complaint NV ad Fluid wt gain Problems: Source Source: Chart review, Patient History of Present Illness Reason for Visit: ESRD - on PD x 15 m, 2nd episode of fluid/wt gain. Feels she need back Up HD for a few Rxs. Edema/ CHF - 2014 ECHO The left ventricle is normal size. The left ventricular systolic function is normal and the ejection fraction is 55-60%. The PA pressure was estimated at 54 mmHg. NO CP per se, + NV - ? Uremic (KUB without mention of constipation) HTN - unable to keep BP MEds down ^ed K OA - Ch for her. ? Dietary indiscretion - treted by ER but still not up. PD ordered last pm, but pt refused. unable to take kayexalate due to NV Past Medical History Cardiovascular: CHF, HTN Heme/Onc: Other (castlemans disease) Musculoskeletal: Osteoarthritis Renal/: Chronic renal insuff Endocrine: Diabetes, Hypothyroidism Past Surgical History Past Surgical History: Tonsillectomy, Other (PD Cath and HD Access) Family History Family History: No Significant, Diabetes, Kidney Disease Social History ALCOHOL: none Drugs: None Current Problem List Problem List Problems Medical Problems: (1) ESRD on peritoneal dialysis Status: Acute (2) Pulmonary edema Status: Acute (3) Volume overload Status: Acute Current Medications Current Medications Current Medications Albuterol/ Ipratropium (Duoneb) 3 ml 1X ONCE NEB Last administered on 11:37; Start 03/30/17 at 11:30; Stop 03/30/17 at 11:31; Status DC Furosemide (Lasix) 20 mg 1X ONCE IVP Last administered on 03/30/17 13:04; Start 03/30/17 at 12:45; Stop 03/30/17 at 12:46; Status DC Sodium Bicarbonate 50 meq 1X ONCE IV Last administered on 03/30/17 14:00; Start 03/30/17 at 13:45; Stop 03/30/17 at 13:46; Status DC Calcium Gluconate (Calcium Gluconate) 1,000 mg 1X ONCE IVP Last administered on 03/30/17 14:00; Start 03/30/17 at 13:45; Stop 03/30/17 at 13:46; Status DC Albuterol Sulfate (Ventolin Neb Soln) 10 mg 1X ONCE CONT NEB Last administered on 03/30/17 14:04; Start 03/30/17 at 13:45; Stop 03/30/17 at 13:46; Status DC Insulin Human Regular (NovoLIN R VIAL) 10 unit 1X ONCE IV Last administered on 03/30/17 14:18; Start 03/30/17 at 13:45; Stop 03/30/17 at 13:46; Status DC Dextrose (Dextrose 50%-Water Syringe) 25 gm 1X ONCE IV Last administered on 14:00; Start 03/30/17 at 13:45; Stop 03/30/17 at 13:46; Status DC Ondansetron HCl (Zofran) 4 mg PRN Q8HRS PRN IV NAUSEA/VOMITING Last administered on 03/30/17 18:30; Start 03/30/17 at 13:45; Stop 03/31/17 at 13:44 Morphine Sulfate 2 mg PRN Q2HR PRN IV PAIN Last administered on 03/30/17 22:22 ; Start 03/30/17 at 13:45; Stop 03/31/17 at 13:44 Amlodipine Besylate (Norvasc) 10 mg DAILY PO Last administered on 03/31/17 08: 30; Start 03/31/17 at 09:00 Carvedilol (Coreg) 12.5 mg BIDWMEALS PO Last administered on 03/31/17 08:28; Start 03/30/17 at 19:00 Diphenoxylate HCl/ Atropine (Lomotil) 1 tab TID PO ; Start 03/30/17 at 21:00 Levothyroxine Sodium (Synthroid) 300 mcg DAILY06 PO Last administered on 06:10; Start 03/31/17 at 06:00 Lisinopril (Prinivil) 10 mg DAILY PO ; Start 03/31/17 at 09:00 Oxycodone/ Acetaminophen (Percocet 5/325) 1 tab QID PRN PO PAIN; Start 03/30/17 at 17:30 Quetiapine Fumarate (SEROquel) 25 mg DAILY08 PO Last administered on 03/31/17 08:26; Start 03/31/17 at 08:00 Sevelamer Carbonate (Renvela) 1,600 mg TIDBFRMEAL PO ; Start 03/31/17 at 07:30 Atorvastatin Calcium (Lipitor) 40 mg QHS PO ; Start 03/30/17 at 21:00 Gabapentin (Neurontin) 600 mg DAILY PO Last administered on 03/31/17 08:28; Start 03/31/17 at 09:00 Insulin Aspart (NovoLOG) 10 units TIDAC SQ ; Start 03/31/17 at 07:30 Quetiapine Fumarate (SEROquel) 300 mg QHS PO Last administered on 03/30/17 22: 33; Start 03/30/17 at 21:00 Losartan Potassium (Cozaar) 100 mg DAILY PO ; Start 03/31/17 at 09:00 Vitamin B Complex/ Vitamin C (Nereida-Colin) 1 tab DAILY PO Last administered on 08:41; Start 03/31/17 at 09:00 Dextrose (Dextrose 50%-Water Syringe) 25 gm 1X ONCE IV Last administered on 17:45; Start 03/30/17 at 17:45; Stop 03/30/17 at 17:46; Status DC Insulin Aspart (NovoLOG) 0-9 UNITS TIDWMEALS SQ ; Start 03/31/17 at 08:00 Dextrose (Dextrose 50%-Water Syringe) 12.5 gm PRN Q15MIN PRN IV SEE COMMENTS; Start 03/30/17 at 17:45 Enoxaparin Sodium (Lovenox 40mg Syringe) 40 mg Q12HR SQ ; Start 03/30/17 at 21:00 ; Status UNV Furosemide (Lasix) 40 mg BID92 IVP Last administered on 03/31/17 08:34; Start 03/31/17 at 09:00 Heparin Sodium (Porcine) (Heparin Sq) 5,000 unit Q8HRS SQ Last administered on 03/31/17 06:11; Start 03/30/17 at 22:00 Furosemide (Lasix) 80 mg 1X ONCE IVP Last administered on 03/30/17 22:11; Start 03/30/17 at 21:00; Stop 03/30/17 at 21:01; Status DC Hydralazine HCl (Apresoline) 10 mg PRN Q4HRS PRN IVP ELEVATED BP, SEE COMMENTS Last administered on 03/30/17 22:18; Start 03/30/17 at 21:00 Prochlorperazine Edisylate (Compazine) 5 mg PRN Q6HRS PRN IV NAUSEA/VOMITING Last administered on 03/30/17 22:10; Start 03/30/17 at 21:15 Nitroglycerin (Nitrostat) 0.4 mg STK-MED ONCE SL ; Start 03/30/17 at 21:55; Stop 03/30/17 at 21:56; Status DC Nitroglycerin (Nitrostat) 0.4 mg PRN Q5MIN PRN SL X 3 DOSES FOR CHEST PAIN Last administered on 03/30/17 22:09; Start 03/30/17 at 22:00 Active Scripts Active Percocet 5-325 Mg Tablet (Oxycodone/Acetaminophen) 1 Each Tablet 1-2 Tab PO Q4- 6HRS Cefpodoxime Proxetil 200 Mg Tablet 200 Mg PO DAILY Lomotil Tablet (Diphenoxylate Hcl/Atropine) 1 Each Tablet 1 Tab PO TID Reported Levemir (Insulin Detemir) 100 Unit/1 Ml Vial 35 Unit SQ HS Buspirone Hcl 15 Mg Tablet 1 Tab PO BID Nephro-Colin Rx Tablet (Vit B Cmplx 3/Fa/Vit C/Biotin) 1 Each Tablet 1 Each PO DAILY Renvela (Sevelamer Carbonate) 800 Mg Tablet 800 Mg PO PRN BFRMEAL PRN Renvela (Sevelamer Carbonate) 800 Mg Tablet 2 Tab PO TIDBFRMEAL Nereida-Colin Rx Tablet (Vit B Cmplx 3/Fa/Vit C/Biotin) 1 Each Tablet 1 Each PO K-Tab ER (Potassium Chloride) 20 Meq Tablet.er 40 Meq PO DAILY Lisinopril 10 Mg Tablet 1 Tab PO DAILY Norvasc (Amlodipine Besylate) 10 Mg Tablet 10 Mg PO DAILY Novolog (Insulin Aspart) 100 Unit/1 Ml Cartridge 100 Unit SQ sliding scale with meals Novolog (Insulin Aspart) 100 Unit/1 Ml Cartridge 10 Unit SQ TIDBFRMEAL Gabapentin 600 Mg Tablet 1 Tab PO DAILY Lipitor (Atorvastatin Calcium) 80 Mg Tablet 40 Mg PO QHS Coreg (Carvedilol) 12.5 Mg Tablet 1 Tab PO BID Diovan (Valsartan) 160 Mg Tablet 2 Tab PO HS Synthroid (Levothyroxine Sodium) 150 Mcg Tablet 2 Tab PO DAILY06 Seroquel (Quetiapine Fumarate) 25 Mg Tablet 1 Tab PO DAILY08 Seroquel (Quetiapine Fumarate) 300 Mg Tablet 300 Mg PO HS Allergies Allergies: Coded Allergies: codeine (Verified Allergy, Intermediate, hives, 10/22/15) Tolerates morphine ROS Review of System GEN: no Fevers + Chills EYES: no new Visual Complaints ENT: no EN Drainage no Hearing deficiets CVS: no Orthopnea no CP RESP: + SOB + MADERA GI: + Nausea + Vomiting : no Dysuria no Urgency HEME: no easy bruising no Palp Ly Nodes NEURO no Focal Weakness no Sz PSYCH: no Suicidal Ideation no Depression SKIN: no Rashes ENDO: no Polyuria or Polydipsia no Hot/Cold Intolerance MU SK: occ Arthraigia min Myalgia Physical Exam Physical Exam General Appearance: Awake Alert Oriented x 3 In no Distress Eyes: VIsion Unchanged Conjunctiva Normal EN: No EN Drainage Mucous Memb. moist; hoarse Neck: no JVD no JVP Supple no Thyromegaly CVS: S1 S2 soft Murmur No Gallop No Rub +3 Edema Resp: no Rales no Rhonchi no Acc. Muscle use GI: BAS +ve NO Bruit Non Tender Non Distended - Obese : no CVA tenderness; no Suprapubic Tenderness SKIN: no Rashes Breast Exam deferred Mu.Sk: Adequate ROM no Muscle Atrophy Heme: Unable to palpate Obvious LAD no Splenomegaly NEURO: Good Strength and Tone Cranial Nerves II - XII grossly intact Psych: somewhat Depressed no Active hallucination Vital Signs Vital Signs Date Time Temp Pulse Resp B/P (MAP) Pulse Ox O2 Delivery O2 Flow Rate FiO2 03/31/17 08:34 73 139/73 03/31/17 07:00 97.9 18 98 Room Air 97.9 03/31/17 03:00 2.0 Assessment & Plan ESRD - Transition to HD as per Pt preference. 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 ^ed TSH contributing NV - check PD fluid to r/o Peritonitis Lowish Jese - w/up as ordered ? Myxedema - defer to Dr Arreola / Heidi to correct Anemia: check Iron, start Epogen Transfuse with next HD as needed. HTN: severe OA (presumed due to NV) Current BP meds reviewed. await ECHO NSTEMI - await ECHO, D/w Cardio ALMOND HULLER re optmization of BP MEds once cardiac status is better evaluated ORD - check and follow phos , alter binder regimne as needed ^ed CK - suspect due to ^ed TSH +/- Marginal Trop Discussed Plan of Care and prognosis etc. at length with pt Labs Labs Laboratory Tests Test 03/30/17 12:50 03/30/17 17:33 03/30/17 17:59 03/30/17 18:31 White Blood Count 6.1 x10^3/uL (4.0-11.0) Red Blood Count 3.73 x10^6/uL (3.50-5.40) Hemoglobin 10.1 g/dL (12.0-15.5) Hematocrit 31.9 % (36.0-47.0) Mean Corpuscular Volume 86 fL (79-100) Mean Corpuscular Hemoglobin 27 pg (25-35) Mean Corpuscular Hemoglobin Concent 32 g/dL (31-37) Red Cell Distribution Width 16.9 % (11.5-14.5) Platelet Count 380 x10^3/uL (140-400) Neutrophils (%) (Auto) 66 % (31-73) Lymphocytes (%) (Auto) 20 % (24-48) Monocytes (%) (Auto) 11 % (0-9) Eosinophils (%) (Auto) 2 % (0-3) Basophils (%) (Auto) 1 % (0-3) Neutrophils # (Auto) 4.0 x10^3uL (1.8-7.7) Lymphocytes # (Auto) 1.2 x10^3/uL (1.0-4.8) Monocytes # (Auto) 0.7 x10^3/uL (0.0-1.1) Eosinophils # (Auto) 0.1 x10^3/uL (0.0-0.7) Basophils # (Auto) 0.1 x10^3/uL (0.0-0.2) Sodium Level 144 mmol/L (136-145) Potassium Level 5.9 mmol/L (3.5-5.1) Chloride Level 108 mmol/L (98-107) Carbon Dioxide Level 23 mmol/L (21-32) Anion Gap 13 (6-14) Blood Urea Nitrogen 57 mg/dL (7-20) Creatinine 6.3 mg/dL (0.6-1.0) Estimated GFR (Cockcroft-Gault) 7.1 Glucose Level 98 mg/dL (70-99) Calcium Level 6.6 mg/dL (8.5-10.1) Total Bilirubin 0.1 mg/dL (0.2-1.0) Direct Bilirubin 0.1 mg/dL (0.0-0.2) Aspartate Amino Transf (AST/SGOT) 17 U/L (15-37) Alanine Aminotransferase (ALT/SGPT) 20 U/L (14-59) Alkaline Phosphatase 68 U/L (46-116) Troponin I Quantitative 0.082 ng/mL (0.000-0.055) SY-Rlj-A-Type Natriuretic Peptide 65704 pg/mL (0-124) Total Protein 7.3 g/dL (6.4-8.2) Albumin 2.3 g/dL (3.4-5.0) Lipase 53 U/L (73-393) Glucose (Fingerstick) 68 mg/dL (70-99) 139 mg/dL (70-99) 118 mg/dL (70-99) Test 03/30/17 19:05 03/30/17 19:39 03/30/17 21:32 03/30/17 22:45 Troponin I Quantitative 0.081 ng/mL (0.000-0.055) 0.077 ng/mL (0.000-0.055) Glucose (Fingerstick) 113 mg/dL (70-99) 120 mg/dL (70-99) Creatine Kinase 973 U/L (26-192) Creatine Kinase MB (Mass) 23.2 ng/mL (0.0-3.6) Creatine Kinase MB Relative Index 2.4 % (0-4) Test 03/31/17 01:30 03/31/17 07:32 White Blood Count 7.1 x10^3/uL (4.0-11.0) Red Blood Count 3.37 x10^6/uL (3.50-5.40) Hemoglobin 9.0 g/dL (12.0-15.5) Hematocrit 29.5 % (36.0-47.0) Mean Corpuscular Volume 88 fL (79-100) Mean Corpuscular Hemoglobin 27 pg (25-35) Mean Corpuscular Hemoglobin Concent 31 g/dL (31-37) Red Cell Distribution Width 16.9 % (11.5-14.5) Platelet Count 313 x10^3/uL (140-400) Neutrophils (%) (Auto) 80 % (31-73) Lymphocytes (%) (Auto) 14 % (24-48) Monocytes (%) (Auto) 6 % (0-9) Eosinophils (%) (Auto) 0 % (0-3) Basophils (%) (Auto) 1 % (0-3) Neutrophils # (Auto) 5.7 x10^3uL (1.8-7.7) Lymphocytes # (Auto) 1.0 x10^3/uL (1.0-4.8) Monocytes # (Auto) 0.4 x10^3/uL (0.0-1.1) Eosinophils # (Auto) 0.0 x10^3/uL (0.0-0.7) Basophils # (Auto) 0.0 x10^3/uL (0.0-0.2) Sodium Level 144 mmol/L (136-145) Potassium Level 5.8 mmol/L (3.5-5.1) Chloride Level 108 mmol/L (98-107) Carbon Dioxide Level 24 mmol/L (21-32) Anion Gap 12 (6-14) Blood Urea Nitrogen 54 mg/dL (7-20) Creatinine 6.4 mg/dL (0.6-1.0) Estimated GFR (Cockcroft-Gault) 7.0 Glucose Level 223 mg/dL (70-99) Calcium Level 7.1 mg/dL (8.5-10.1) Troponin I Quantitative 0.071 ng/mL (0.000-0.055) Triglycerides Level 103 mg/dL (0-150) Cholesterol Level 131 mg/dL (0-200) LDL Cholesterol, Calculated 71 mg/dL (0-100) VLDL Cholesterol, Calculated 21 mg/dL (0-40) Non-HDL Cholesterol Calculated 92 mg/dL (0-129) HDL Cholesterol 39 mg/dL (40-60) Cholesterol/HDL Ratio 3.4 Thyroid Stimulating Hormone (TSH) 190.266 uIU/mL (0.358-3.74) Glucose (Fingerstick) 162 mg/dL (70-99) Laboratory Tests Test 03/30/17 12:50 03/30/17 17:33 03/30/17 17:59 03/30/17 18:31 White Blood Count 6.1 x10^3/uL (4.0-11.0) Red Blood Count 3.73 x10^6/uL (3.50-5.40) Hemoglobin 10.1 g/dL (12.0-15.5) Hematocrit 31.9 % (36.0-47.0) Mean Corpuscular Volume 86 fL (79-100) Mean Corpuscular Hemoglobin 27 pg (25-35) Mean Corpuscular Hemoglobin Concent 32 g/dL (31-37) Red Cell Distribution Width 16.9 % (11.5-14.5) Platelet Count 380 x10^3/uL (140-400) Neutrophils (%) (Auto) 66 % (31-73) Lymphocytes (%) (Auto) 20 % (24-48) Monocytes (%) (Auto) 11 % (0-9) Eosinophils (%) (Auto) 2 % (0-3) Basophils (%) (Auto) 1 % (0-3) Neutrophils # (Auto) 4.0 x10^3uL (1.8-7.7) Lymphocytes # (Auto) 1.2 x10^3/uL (1.0-4.8) Monocytes # (Auto) 0.7 x10^3/uL (0.0-1.1) Eosinophils # (Auto) 0.1 x10^3/uL (0.0-0.7) Basophils # (Auto) 0.1 x10^3/uL (0.0-0.2) Sodium Level 144 mmol/L (136-145) Potassium Level 5.9 mmol/L (3.5-5.1) Chloride Level 108 mmol/L (98-107) Carbon Dioxide Level 23 mmol/L (21-32) Anion Gap 13 (6-14) Blood Urea Nitrogen 57 mg/dL (7-20) Creatinine 6.3 mg/dL (0.6-1.0) Estimated GFR (Cockcroft-Gault) 7.1 Glucose Level 98 mg/dL (70-99) Calcium Level 6.6 mg/dL (8.5-10.1) Total Bilirubin 0.1 mg/dL (0.2-1.0) Direct Bilirubin 0.1 mg/dL (0.0-0.2) Aspartate Amino Transf (AST/SGOT) 17 U/L (15-37) Alanine Aminotransferase (ALT/SGPT) 20 U/L (14-59) Alkaline Phosphatase 68 U/L (46-116) Troponin I Quantitative 0.082 ng/mL (0.000-0.055) QB-Coy-O-Type Natriuretic Peptide 07495 pg/mL (0-124) Total Protein 7.3 g/dL (6.4-8.2) Albumin 2.3 g/dL (3.4-5.0) Lipase 53 U/L (73-393) Glucose (Fingerstick) 68 mg/dL (70-99) 139 mg/dL (70-99) 118 mg/dL (70-99) Test 03/30/17 19:05 03/30/17 19:39 03/30/17 21:32 03/30/17 22:45 Troponin I Quantitative 0.081 ng/mL (0.000-0.055) 0.077 ng/mL (0.000-0.055) Glucose (Fingerstick) 113 mg/dL (70-99) 120 mg/dL (70-99) Creatine Kinase 973 U/L (26-192) Creatine Kinase MB (Mass) 23.2 ng/mL (0.0-3.6) Creatine Kinase MB Relative Index 2.4 % (0-4) Test 03/31/17 01:30 03/31/17 07:32 White Blood Count 7.1 x10^3/uL (4.0-11.0) Red Blood Count 3.37 x10^6/uL (3.50-5.40) Hemoglobin 9.0 g/dL (12.0-15.5) Hematocrit 29.5 % (36.0-47.0) Mean Corpuscular Volume 88 fL (79-100) Mean Corpuscular Hemoglobin 27 pg (25-35) Mean Corpuscular Hemoglobin Concent 31 g/dL (31-37) Red Cell Distribution Width 16.9 % (11.5-14.5) Platelet Count 313 x10^3/uL (140-400) Neutrophils (%) (Auto) 80 % (31-73) Lymphocytes (%) (Auto) 14 % (24-48) Monocytes (%) (Auto) 6 % (0-9) Eosinophils (%) (Auto) 0 % (0-3) Basophils (%) (Auto) 1 % (0-3) Neutrophils # (Auto) 5.7 x10^3uL (1.8-7.7) Lymphocytes # (Auto) 1.0 x10^3/uL (1.0-4.8) Monocytes # (Auto) 0.4 x10^3/uL (0.0-1.1) Eosinophils # (Auto) 0.0 x10^3/uL (0.0-0.7) Basophils # (Auto) 0.0 x10^3/uL (0.0-0.2) Sodium Level 144 mmol/L (136-145) Potassium Level 5.8 mmol/L (3.5-5.1) Chloride Level 108 mmol/L (98-107) Carbon Dioxide Level 24 mmol/L (21-32) Anion Gap 12 (6-14) Blood Urea Nitrogen 54 mg/dL (7-20) Creatinine 6.4 mg/dL (0.6-1.0) Estimated GFR (Cockcroft-Gault) 7.0 Glucose Level 223 mg/dL (70-99) Calcium Level 7.1 mg/dL (8.5-10.1) Troponin I Quantitative 0.071 ng/mL (0.000-0.055) Triglycerides Level 103 mg/dL (0-150) Cholesterol Level 131 mg/dL (0-200) LDL Cholesterol, Calculated 71 mg/dL (0-100) VLDL Cholesterol, Calculated 21 mg/dL (0-40) Non-HDL Cholesterol Calculated 92 mg/dL (0-129) HDL Cholesterol 39 mg/dL (40-60) Cholesterol/HDL Ratio 3.4 Thyroid Stimulating Hormone (TSH) 190.266 uIU/mL (0.358-3.74) Glucose (Fingerstick) 162 mg/dL (70-99) BRANDON OSHEA MD Mar 31, 2017 10:42
[2017-03-31 10:46] VITALS: BP 164/71
[2017-03-31] MEDS ORDERED: MAGNESIUM SULFATE 2GM 50 ML IV PRN (11:15)
--- NOTE | 2017-03-31 12:01 | PDOC ---
PROGRESS NOTES Subjective Subjective The patient c/o shaking She denied any pain , nausea or vomiting Objective Objective Vital Signs Date Time Temp Pulse Resp B/P (MAP) Pulse Ox O2 Delivery O2 Flow Rate FiO2 03/31/17 10:46 97.9 69 18 164/71 (102) 98 Nasal Cannula 97.9 03/31/17 08:05 2.0 Intake and Output 03/31/17 06:59 Intake Total 50 ml Balance 50 ml Intake Oral 50 ml # Voids 3 Physical Exam Physical Exam Setting in her chair eating her lunch Vitals are stable Generalized anasarca Abdomen: Normal bowel sounds, No tenderness Heart: Regular rate, Normal S1, Normal S2 Extremities: Other (marked bilateral L E Edema) General: Alert, Oriented X3, Cooperative, No acute distress HEENT: Atraumatic, PERRLA, EOMI Lungs: Clear to auscultation MUSCULOSKELETAL: No joint tenderness Neck: Supple, No JVD, No thyromegaly Neuro: Normal gait, Normal speech, Strength at 5/5 X4 ext, Normal tone, Sensation intact, Cranial nerves 3-12 NL Psych/Mental Status: Mental status NL, Mood NL Skin: No rashes Diagnosis DIAGNOSIS ESRD on perittoneal dialysis She seemed to be uremic and has a functioning AV Fistula and she is scheduled for Hemodialysis Problems: Assessment Assessment Problems Medical Problems: (1) ESRD on peritoneal dialysis Status: Acute (2) Pulmonary edema Status: Acute (3) Volume overload Status: Acute Plan Plan of Care Peritoneal dialysate to the lab to R/O peritonitis She is scheduled to start HD today Comment Review of Relevant I have reviewed the following items alex (where applicable) has been applied. Labs Laboratory Tests Test 03/30/17 12:50 03/30/17 17:33 03/30/17 17:59 03/30/17 18:31 White Blood Count 6.1 x10^3/uL (4.0-11.0) Red Blood Count 3.73 x10^6/uL (3.50-5.40) Hemoglobin 10.1 g/dL (12.0-15.5) Hematocrit 31.9 % (36.0-47.0) Mean Corpuscular Volume 86 fL (79-100) Mean Corpuscular Hemoglobin 27 pg (25-35) Mean Corpuscular Hemoglobin Concent 32 g/dL (31-37) Red Cell Distribution Width 16.9 % (11.5-14.5) Platelet Count 380 x10^3/uL (140-400) Neutrophils (%) (Auto) 66 % (31-73) Lymphocytes (%) (Auto) 20 % (24-48) Monocytes (%) (Auto) 11 % (0-9) Eosinophils (%) (Auto) 2 % (0-3) Basophils (%) (Auto) 1 % (0-3) Neutrophils # (Auto) 4.0 x10^3uL (1.8-7.7) Lymphocytes # (Auto) 1.2 x10^3/uL (1.0-4.8) Monocytes # (Auto) 0.7 x10^3/uL (0.0-1.1) Eosinophils # (Auto) 0.1 x10^3/uL (0.0-0.7) Basophils # (Auto) 0.1 x10^3/uL (0.0-0.2) Sodium Level 144 mmol/L (136-145) Potassium Level 5.9 mmol/L (3.5-5.1) Chloride Level 108 mmol/L (98-107) Carbon Dioxide Level 23 mmol/L (21-32) Anion Gap 13 (6-14) Blood Urea Nitrogen 57 mg/dL (7-20) Creatinine 6.3 mg/dL (0.6-1.0) Estimated GFR (Cockcroft-Gault) 7.1 Glucose Level 98 mg/dL (70-99) Calcium Level 6.6 mg/dL (8.5-10.1) Total Bilirubin 0.1 mg/dL (0.2-1.0) Direct Bilirubin 0.1 mg/dL (0.0-0.2) Aspartate Amino Transf (AST/SGOT) 17 U/L (15-37) Alanine Aminotransferase (ALT/SGPT) 20 U/L (14-59) Alkaline Phosphatase 68 U/L (46-116) Troponin I Quantitative 0.082 ng/mL (0.000-0.055) IE-Fzs-G-Type Natriuretic Peptide 60056 pg/mL (0-124) Total Protein 7.3 g/dL (6.4-8.2) Albumin 2.3 g/dL (3.4-5.0) Lipase 53 U/L (73-393) Glucose (Fingerstick) 68 mg/dL (70-99) 139 mg/dL (70-99) 118 mg/dL (70-99) Test 03/30/17 19:05 03/30/17 19:39 03/30/17 21:32 03/30/17 22:45 Troponin I Quantitative 0.081 ng/mL (0.000-0.055) 0.077 ng/mL (0.000-0.055) Glucose (Fingerstick) 113 mg/dL (70-99) 120 mg/dL (70-99) Creatine Kinase 973 U/L (26-192) Creatine Kinase MB (Mass) 23.2 ng/mL (0.0-3.6) Creatine Kinase MB Relative Index 2.4 % (0-4) Test 03/31/17 01:30 03/31/17 07:32 White Blood Count 7.1 x10^3/uL (4.0-11.0) Red Blood Count 3.37 x10^6/uL (3.50-5.40) Hemoglobin 9.0 g/dL (12.0-15.5) Hematocrit 29.5 % (36.0-47.0) Mean Corpuscular Volume 88 fL (79-100) Mean Corpuscular Hemoglobin 27 pg (25-35) Mean Corpuscular Hemoglobin Concent 31 g/dL (31-37) Red Cell Distribution Width 16.9 % (11.5-14.5) Platelet Count 313 x10^3/uL (140-400) Neutrophils (%) (Auto) 80 % (31-73) Lymphocytes (%) (Auto) 14 % (24-48) Monocytes (%) (Auto) 6 % (0-9) Eosinophils (%) (Auto) 0 % (0-3) Basophils (%) (Auto) 1 % (0-3) Neutrophils # (Auto) 5.7 x10^3uL (1.8-7.7) Lymphocytes # (Auto) 1.0 x10^3/uL (1.0-4.8) Monocytes # (Auto) 0.4 x10^3/uL (0.0-1.1) Eosinophils # (Auto) 0.0 x10^3/uL (0.0-0.7) Basophils # (Auto) 0.0 x10^3/uL (0.0-0.2) Sodium Level 144 mmol/L (136-145) Potassium Level 5.8 mmol/L (3.5-5.1) Chloride Level 108 mmol/L (98-107) Carbon Dioxide Level 24 mmol/L (21-32) Anion Gap 12 (6-14) Blood Urea Nitrogen 54 mg/dL (7-20) Creatinine 6.4 mg/dL (0.6-1.0) Estimated GFR (Cockcroft-Gault) 7.0 Glucose Level 223 mg/dL (70-99) Calcium Level 7.1 mg/dL (8.5-10.1) Troponin I Quantitative 0.071 ng/mL (0.000-0.055) Triglycerides Level 103 mg/dL (0-150) Cholesterol Level 131 mg/dL (0-200) LDL Cholesterol, Calculated 71 mg/dL (0-100) VLDL Cholesterol, Calculated 21 mg/dL (0-40) Non-HDL Cholesterol Calculated 92 mg/dL (0-129) HDL Cholesterol 39 mg/dL (40-60) Cholesterol/HDL Ratio 3.4 Thyroid Stimulating Hormone (TSH) 190.266 uIU/mL (0.358-3.74) Glucose (Fingerstick) 162 mg/dL (70-99) Laboratory Tests Test 03/30/17 12:50 03/30/17 17:33 03/30/17 17:59 03/30/17 18:31 White Blood Count 6.1 x10^3/uL (4.0-11.0) Red Blood Count 3.73 x10^6/uL (3.50-5.40) Hemoglobin 10.1 g/dL (12.0-15.5) Hematocrit 31.9 % (36.0-47.0) Mean Corpuscular Volume 86 fL (79-100) Mean Corpuscular Hemoglobin 27 pg (25-35) Mean Corpuscular Hemoglobin Concent 32 g/dL (31-37) Red Cell Distribution Width 16.9 % (11.5-14.5) Platelet Count 380 x10^3/uL (140-400) Neutrophils (%) (Auto) 66 % (31-73) Lymphocytes (%) (Auto) 20 % (24-48) Monocytes (%) (Auto) 11 % (0-9) Eosinophils (%) (Auto) 2 % (0-3) Basophils (%) (Auto) 1 % (0-3) Neutrophils # (Auto) 4.0 x10^3uL (1.8-7.7) Lymphocytes # (Auto) 1.2 x10^3/uL (1.0-4.8) Monocytes # (Auto) 0.7 x10^3/uL (0.0-1.1) Eosinophils # (Auto) 0.1 x10^3/uL (0.0-0.7) Basophils # (Auto) 0.1 x10^3/uL (0.0-0.2) Sodium Level 144 mmol/L (136-145) Potassium Level 5.9 mmol/L (3.5-5.1) Chloride Level 108 mmol/L (98-107) Carbon Dioxide Level 23 mmol/L (21-32) Anion Gap 13 (6-14) Blood Urea Nitrogen 57 mg/dL (7-20) Creatinine 6.3 mg/dL (0.6-1.0) Estimated GFR (Cockcroft-Gault) 7.1 Glucose Level 98 mg/dL (70-99) Calcium Level 6.6 mg/dL (8.5-10.1) Total Bilirubin 0.1 mg/dL (0.2-1.0) Direct Bilirubin 0.1 mg/dL (0.0-0.2) Aspartate Amino Transf (AST/SGOT) 17 U/L (15-37) Alanine Aminotransferase (ALT/SGPT) 20 U/L (14-59) Alkaline Phosphatase 68 U/L (46-116) Troponin I Quantitative 0.082 ng/mL (0.000-0.055) RN-Cqj-Y-Type Natriuretic Peptide 92297 pg/mL (0-124) Total Protein 7.3 g/dL (6.4-8.2) Albumin 2.3 g/dL (3.4-5.0) Lipase 53 U/L (73-393) Glucose (Fingerstick) 68 mg/dL (70-99) 139 mg/dL (70-99) 118 mg/dL (70-99) Test 03/30/17 19:05 03/30/17 19:39 03/30/17 21:32 03/30/17 22:45 Troponin I Quantitative 0.081 ng/mL (0.000-0.055) 0.077 ng/mL (0.000-0.055) Glucose (Fingerstick) 113 mg/dL (70-99) 120 mg/dL (70-99) Creatine Kinase 973 U/L (26-192) Creatine Kinase MB (Mass) 23.2 ng/mL (0.0-3.6) Creatine Kinase MB Relative Index 2.4 % (0-4) Test 03/31/17 01:30 03/31/17 07:32 White Blood Count 7.1 x10^3/uL (4.0-11.0) Red Blood Count 3.37 x10^6/uL (3.50-5.40) Hemoglobin 9.0 g/dL (12.0-15.5) Hematocrit 29.5 % (36.0-47.0) Mean Corpuscular Volume 88 fL (79-100) Mean Corpuscular Hemoglobin 27 pg (25-35) Mean Corpuscular Hemoglobin Concent 31 g/dL (31-37) Red Cell Distribution Width 16.9 % (11.5-14.5) Platelet Count 313 x10^3/uL (140-400) Neutrophils (%) (Auto) 80 % (31-73) Lymphocytes (%) (Auto) 14 % (24-48) Monocytes (%) (Auto) 6 % (0-9) Eosinophils (%) (Auto) 0 % (0-3) Basophils (%) (Auto) 1 % (0-3) Neutrophils # (Auto) 5.7 x10^3uL (1.8-7.7) Lymphocytes # (Auto) 1.0 x10^3/uL (1.0-4.8) Monocytes # (Auto) 0.4 x10^3/uL (0.0-1.1) Eosinophils # (Auto) 0.0 x10^3/uL (0.0-0.7) Basophils # (Auto) 0.0 x10^3/uL (0.0-0.2) Sodium Level 144 mmol/L (136-145) Potassium Level 5.8 mmol/L (3.5-5.1) Chloride Level 108 mmol/L (98-107) Carbon Dioxide Level 24 mmol/L (21-32) Anion Gap 12 (6-14) Blood Urea Nitrogen 54 mg/dL (7-20) Creatinine 6.4 mg/dL (0.6-1.0) Estimated GFR (Cockcroft-Gault) 7.0 Glucose Level 223 mg/dL (70-99) Calcium Level 7.1 mg/dL (8.5-10.1) Troponin I Quantitative 0.071 ng/mL (0.000-0.055) Triglycerides Level 103 mg/dL (0-150) Cholesterol Level 131 mg/dL (0-200) LDL Cholesterol, Calculated 71 mg/dL (0-100) VLDL Cholesterol, Calculated 21 mg/dL (0-40) Non-HDL Cholesterol Calculated 92 mg/dL (0-129) HDL Cholesterol 39 mg/dL (40-60) Cholesterol/HDL Ratio 3.4 Thyroid Stimulating Hormone (TSH) 190.266 uIU/mL (0.358-3.74) Glucose (Fingerstick) 162 mg/dL (70-99) Medications Current Medications Albuterol/ Ipratropium (Duoneb) 3 ml 1X ONCE NEB Last administered on 11:37; Start 03/30/17 at 11:30; Stop 03/30/17 at 11:31; Status DC Furosemide (Lasix) 20 mg 1X ONCE IVP Last administered on 03/30/17 13:04; Start 03/30/17 at 12:45; Stop 03/30/17 at 12:46; Status DC Sodium Bicarbonate 50 meq 1X ONCE IV Last administered on 03/30/17 14:00; Start 03/30/17 at 13:45; Stop 03/30/17 at 13:46; Status DC Calcium Gluconate (Calcium Gluconate) 1,000 mg 1X ONCE IVP Last administered on 03/30/17 14:00; Start 03/30/17 at 13:45; Stop 03/30/17 at 13:46; Status DC Albuterol Sulfate (Ventolin Neb Soln) 10 mg 1X ONCE CONT NEB Last administered on 03/30/17 14:04; Start 03/30/17 at 13:45; Stop 03/30/17 at 13:46; Status DC Insulin Human Regular (NovoLIN R VIAL) 10 unit 1X ONCE IV Last administered on 03/30/17 14:18; Start 03/30/17 at 13:45; Stop 03/30/17 at 13:46; Status DC Dextrose (Dextrose 50%-Water Syringe) 25 gm 1X ONCE IV Last administered on 14:00; Start 03/30/17 at 13:45; Stop 03/30/17 at 13:46; Status DC Ondansetron HCl (Zofran) 4 mg PRN Q8HRS PRN IV NAUSEA/VOMITING Last administered on 03/30/17 18:30; Start 03/30/17 at 13:45; Stop 03/31/17 at 13:44 Morphine Sulfate 2 mg PRN Q2HR PRN IV PAIN Last administered on 03/30/17 22:22 ; Start 03/30/17 at 13:45; Stop 03/31/17 at 13:44 Amlodipine Besylate (Norvasc) 10 mg DAILY PO Last administered on 03/31/17 08: 30; Start 03/31/17 at 09:00 Carvedilol (Coreg) 12.5 mg BIDWMEALS PO Last administered on 03/31/17 08:28; Start 03/30/17 at 19:00 Diphenoxylate HCl/ Atropine (Lomotil) 1 tab TID PO ; Start 03/30/17 at 21:00 Levothyroxine Sodium (Synthroid) 300 mcg DAILY06 PO Last administered on 06:10; Start 03/31/17 at 06:00 Lisinopril (Prinivil) 10 mg DAILY PO ; Start 03/31/17 at 09:00 Oxycodone/ Acetaminophen (Percocet 5/325) 1 tab QID PRN PO PAIN; Start 03/30/17 at 17:30 Quetiapine Fumarate (SEROquel) 25 mg DAILY08 PO Last administered on 03/31/17 08:26; Start 03/31/17 at 08:00 Sevelamer Carbonate (Renvela) 1,600 mg TIDBFRMEAL PO ; Start 03/31/17 at 07:30 Atorvastatin Calcium (Lipitor) 40 mg QHS PO ; Start 03/30/17 at 21:00 Gabapentin (Neurontin) 600 mg DAILY PO Last administered on 03/31/17 08:28; Start 03/31/17 at 09:00 Insulin Aspart (NovoLOG) 10 units TIDAC SQ ; Start 03/31/17 at 07:30 Quetiapine Fumarate (SEROquel) 300 mg QHS PO Last administered on 03/30/17 22: 33; Start 03/30/17 at 21:00 Losartan Potassium (Cozaar) 100 mg DAILY PO ; Start 03/31/17 at 09:00 Vitamin B Complex/ Vitamin C (Nereida-Colin) 1 tab DAILY PO Last administered on 08:41; Start 03/31/17 at 09:00 Dextrose (Dextrose 50%-Water Syringe) 25 gm 1X ONCE IV Last administered on 17:45; Start 03/30/17 at 17:45; Stop 03/30/17 at 17:46; Status DC Insulin Aspart (NovoLOG) 0-9 UNITS TIDWMEALS SQ ; Start 03/31/17 at 08:00 Dextrose (Dextrose 50%-Water Syringe) 12.5 gm PRN Q15MIN PRN IV SEE COMMENTS; Start 03/30/17 at 17:45 Enoxaparin Sodium (Lovenox 40mg Syringe) 40 mg Q12HR SQ ; Start 03/30/17 at 21:00 ; Status UNV Furosemide (Lasix) 40 mg BID92 IVP Last administered on 03/31/17 08:34; Start 03/31/17 at 09:00 Heparin Sodium (Porcine) (Heparin Sq) 5,000 unit Q8HRS SQ Last administered on 03/31/17 06:11; Start 03/30/17 at 22:00 Furosemide (Lasix) 80 mg 1X ONCE IVP Last administered on 03/30/17 22:11; Start 03/30/17 at 21:00; Stop 03/30/17 at 21:01; Status DC Hydralazine HCl (Apresoline) 10 mg PRN Q4HRS PRN IVP ELEVATED BP, SEE COMMENTS Last administered on 03/30/17 22:18; Start 03/30/17 at 21:00 Prochlorperazine Edisylate (Compazine) 5 mg PRN Q6HRS PRN IV NAUSEA/VOMITING Last administered on 03/30/17 22:10; Start 03/30/17 at 21:15 Nitroglycerin (Nitrostat) 0.4 mg STK-MED ONCE SL ; Start 03/30/17 at 21:55; Stop 03/30/17 at 21:56; Status DC Nitroglycerin (Nitrostat) 0.4 mg PRN Q5MIN PRN SL X 3 DOSES FOR CHEST PAIN Last administered on 03/30/17t 22:09; Start 03/30/17 at 22:00 Darbepoetin Nils (Aranesp) 60 mcg WEEKLYHS SQ ; Start 03/31/17 at 21:00 Magnesium Sulfate/ Dextrose 50 ml @ 25 mls/hr PRN DAILY PRN IV for Mag < 1.7 on am labs; Start 03/31/17 at 11:15 Active Scripts Active Percocet 5-325 Mg Tablet (Oxycodone/Acetaminophen) 1 Each Tablet 1-2 Tab PO Q4- 6HRS Cefpodoxime Proxetil 200 Mg Tablet 200 Mg PO DAILY Lomotil Tablet (Diphenoxylate Hcl/Atropine) 1 Each Tablet 1 Tab PO TID Reported Levemir (Insulin Detemir) 100 Unit/1 Ml Vial 35 Unit SQ HS Buspirone Hcl 15 Mg Tablet 1 Tab PO BID Nephro-Colin Rx Tablet (Vit B Cmplx 3/Fa/Vit C/Biotin) 1 Each Tablet 1 Each PO DAILY Renvela (Sevelamer Carbonate) 800 Mg Tablet 800 Mg PO PRN BFRMEAL PRN Renvela (Sevelamer Carbonate) 800 Mg Tablet 2 Tab PO TIDBFRMEAL Nereida-Colin Rx Tablet (Vit B Cmplx 3/Fa/Vit C/Biotin) 1 Each Tablet 1 Each PO K-Tab ER (Potassium Chloride) 20 Meq Tablet.er 40 Meq PO DAILY Lisinopril 10 Mg Tablet 1 Tab PO DAILY Norvasc (Amlodipine Besylate) 10 Mg Tablet 10 Mg PO DAILY Novolog (Insulin Aspart) 100 Unit/1 Ml Cartridge 100 Unit SQ sliding scale with meals Novolog (Insulin Aspart) 100 Unit/1 Ml Cartridge 10 Unit SQ TIDBFRMEAL Gabapentin 600 Mg Tablet 1 Tab PO DAILY Lipitor (Atorvastatin Calcium) 80 Mg Tablet 40 Mg PO QHS Coreg (Carvedilol) 12.5 Mg Tablet 1 Tab PO BID Diovan (Valsartan) 160 Mg Tablet 2 Tab PO HS Synthroid (Levothyroxine Sodium) 150 Mcg Tablet 2 Tab PO DAILY06 Seroquel (Quetiapine Fumarate) 25 Mg Tablet 1 Tab PO DAILY08 Seroquel (Quetiapine Fumarate) 300 Mg Tablet 300 Mg PO HS Vitals/I & O Vital Sign - Last 24 Hours 03/30/17 03/30/17 03/30/17 03/30/17 12:41 13:41 14:14 14:41 Pulse 70 68 74 B/P (MAP) 147/63 (91) 199/83 (121) 144/65 (91) Pulse Ox 97 98 99 100 O2 Delivery Nasal Cannula O2 Flow Rate 2.0 03/30/17 03/30/17 03/30/17 03/30/17 15:38 15:41 16:41 18:30 Pulse 74 74 Resp 20 B/P (MAP) 140/64 (89) 177/77 (110) Pulse Ox 100 98 O2 Delivery Nasal Cannula Room Air O2 Flow Rate 2.0 03/30/17 03/30/17 03/30/17 03/30/17 19:00 20:00 21:55 22:01 Temp 97.9 97.9 Pulse 83 81 81 Resp 20 22 B/P (MAP) 134/100 (111) 194/88 (123) 194/88 Pulse Ox 94 97 O2 Delivery Nasal Cannula Nasal Cannula Nasal Cannula O2 Flow Rate 2.0 2.0 2.0 03/30/17 03/30/17 03/30/17 03/30/17 22:05 22:09 22:18 22:22 Pulse 82 82 82 Resp 18 B/P (MAP) 175/83 (113) 175/83 175/83 Pulse Ox 98 O2 Delivery Nasal Cannula Nasal Cannula O2 Flow Rate 2.0 2.0 03/30/17 03/30/17 03/31/17 03/31/17 22:52 23:00 00:24 03:00 Temp 98.4 97.8 98.4 97.8 Pulse 78 64 Resp 20 20 B/P (MAP) 175/80 (111) 109/57 (74) Pulse Ox 95 94 O2 Delivery Nasal Cannula Nasal Cannula Nasal Cannula Nasal Cannula O2 Flow Rate 2.0 2.0 2.0 2.0 03/31/17 03/31/17 03/31/17 03/31/17 07:00 08:05 08:28 08:30 Temp 97.9 97.9 Pulse 73 73 73 Resp 18 B/P (MAP) 139/73 (95) 139/73 139/73 Pulse Ox 98 O2 Delivery Room Air Nasal Cannula O2 Flow Rate 2.0 03/31/17 03/31/17 03/31/17 08:30 08:34 10:46 Temp 97.9 97.9 Pulse 73 73 69 Resp 18 B/P (MAP) 139/73 139/73 164/71 (102) Pulse Ox 98 O2 Delivery Nasal Cannula Intake and Output 03/30/17 03/30/17 03/31/17 14:59 22:59 06:59 Intake Total 50 ml Balance 50 ml MAURICE RICHARD MD Mar 31, 2017 12:01
[2017-03-31] MEDS ORDERED: IV NORMAL SALINE 1000ML BAG 1,000 ML IV PRN ×2 (12:24)
[2017-03-31] MEDS ORDERED: diphenhydrAMINE 50 MG/ML VIAL IV PRN ×2 (12:30)
[2017-03-31] MEDS ORDERED: DIALYSIS PATIENT. MC PRN ×2 (12:30)
--- NOTE | 2017-03-31 13:43 | CARD ---
APPROVED REPORT EXAM: Two-dimensional and M-mode echocardiogram with Doppler and color Doppler. Other Information Quality : Good INDICATION Congestive Heart Failure 2D DIMENSIONS RVDd3.2 (2.9-3.5cm)Left Atrium(2D)4.4 (1.6-4.0cm) IVSd1.5 (0.7-1.1cm)Aortic Root(2D)3.1 (2.0-3.7cm) LVDd4.9 (3.9-5.9cm)LVOT Diameter2.2 (1.8-2.4cm) PWd1.8 (0.7-1.1cm)LVDs2.7 (2.5-4.0cm) FS (%) 30.0 %SV83.2 ml LVEF(%)60.0 (>50%) Aortic Valve AoV Peak Jaswinder.163.8cm/sAoV VTI34.6cm AO Peak GR.10.7mmHgLVOT Peak Jaswinder.152.8cm/s LVOT VTI 34.80cmAO Mean GR.6mmHg JOSE G (VMAX)3.49yg8AXE (VTI)3.87cm2 Mitral Valve MV E Qipvfaaa594.1cm/sMV DECEL [id number] MV A Wxjzrrkq86.1cm/sMV UKL81vs E/A Ratio1.3MVA (PHT)3.61cm2 TDI E/Lateral E'18.3E/Medial E'22.6 Tricuspid Valve TR P. Nosgnulq715fj/sRAP EBLGFSXG8zhPr TR Peak Gr.82amDbRPFP92qkUi Pulmonary Vein S1 Gulpixuc63.9cm/sD2 Bkanywiu98.7cm/s PVa qdfyxbkx902cins LEFT VENTRICLE The left ventricle is normal size. There is mild to moderate concentric left ventricular hypertrophy. The left ventricular systolic function is normal and the ejection fraction is within normal range. T he Ejection Fraction is 55-60%. There is normal LV segmental wall motion. RIGHT VENTRICLE The right ventricle is normal size. The right ventricular systolic function is normal. ATRIA The left atrium is mildly dilated. The right atrium size is normal. The interatrial septum is intact with no evidence for an atrial septal defect or patent foramen ovale as noted on 2-D or Doppler imagi ng. AORTIC VALVE The aortic valve is normal in structure and function. Doppler and Color Flow revealed no significant aortic regurgitation. There is no significant aortic valvular stenosis. MITRAL VALVE The mitral valve is normal in structure and function. There is no evidence of mitral valve prolapse. There is no mitral valve stenosis. Doppler and Color-flow revealed mild mitral regurgitation. TRICUSPID VALVE Doppler and Color Flow revealed moderate tricuspid regurgitation. There is mild pulmonary hypertensio n. The PA pressure was estimated at 39 mmHg. There is no tricuspid valve stenosis. PULMONIC VALVE Doppler and Color Flow revealed trace to mild pulmonic valvular regurgitation. There is no pulmonic v alvular stenosis. GREAT VESSELS The aortic root is normal in size. The ascending aorta is normal in size. The IVC is normal in size a nd collapses >50% with inspiration. PERICARDIAL EFFUSION There is no evidence of significant pericardial effusion. Critical Notification Critical Value: No <Conclusion> There is mild to moderate concentric left ventricular hypertrophy. The left ventricular systolic function is normal and the ejection fraction is within normal range. The Ejection Fraction is 55-60%. There is normal LV segmental wall motion. Doppler and Color Flow revealed moderate tricuspid regurgitation. There is mild pulmonary hypertensio n. The PA pressure was estimated at 39 mmHg.
[2017-03-31] MEDS: ASPIRIN ENTERIC COATED 81 MG TABLET.DR. PO SCH (13:45)
[2017-03-31 14:30] VITALS: BP 164/71
[2017-03-31 19:00] VITALS: BP 154/67
[2017-03-31] MEDS ORDERED: DARBEPOETIN ALFA 60 MCG/0.3 ML DISP.SYRIN. SQ SCH (21:00)
[2017-03-31] MEDS: ATORVASTATIN CALCIUM 40 MG TABLET. PO SCH (21:26)
[2017-03-31] MEDS: QUEtiapine 100 MG TABLET. PO SCH (21:26)
[2017-03-31 22:46] VITALS: BP 124/56
[2017-04-01 03:00] VITALS: BP 110/53
[2017-04-01] MEDS: LEVOTHYROXINE 150 MCG TABLET PO SCH (06:05)
[2017-04-01] MEDS: HEPARIN PF for SUB-Q USE 5,000 UNIT/0.5 ML VIAL. SQ SCH ×3 (06:09→22:03)
[2017-04-01 07:00] VITALS: BP 141/76
[2017-04-01] MEDS: SEVELAMER CARBONATE 800 MG TABLET. PO SCH ×3 (07:30→16:30)
[2017-04-01] MEDS: INSULIN ASPART 300 UNITS/3 ML INSULN.PEN SQ SCH ×6 (07:30→17:00)
[2017-04-01 07:51] LABS: ALBUMIN 1.8 g/dL (3.4-5.0); CALCIUM 7.1 mg/dL (8.5-10.1); CREATININE 4.3 mg/dL (0.6-1.0); GFR 11.1; POTASSIUM 4.2 mmol/L (3.5-5.1)
[2017-04-01] MEDS: CARVEDILOL 12.5 MG TABLET. PO SCH ×2 (08:00→17:00)
[2017-04-01 08:34] LABS: FREE T4 0.34 ng/dL (0.76-1.46)
[2017-04-01] MEDS: FUROSEMIDE 40 MG/4 ML VIAL. IVP SCH ×2 (09:00→14:00)
[2017-04-01] MEDS ORDERED: LISINOPRIL 20 MG TABLET PO SCH (09:00)
[2017-04-01] MEDS: amLODIPine BESYLATE 10 MG TABLET PO SCH (09:00)
[2017-04-01] MEDS: LOSARTAN POTASSIUM 50 MG TABLET. PO SCH (09:00)
[2017-04-01 10:28] VITALS: BP 151/76
[2017-04-01] MEDS: DIPHENOXYLATE/ATROPINE TABLET. PO SCH ×3 (11:01→21:53)
[2017-04-01] MEDS: ASPIRIN ENTERIC COATED 81 MG TABLET.DR. PO SCH (11:01)
[2017-04-01] MEDS: FOLIC/VIT B COMP W-C (RENAL) TABLET. PO SCH (11:02)
[2017-04-01] MEDS: GABAPENTIN 300 MG CAPSULE. PO SCH (12:14)
[2017-04-01] MEDS: QUEtiapine 25 MG TABLET. PO SCH (12:15)
--- NOTE | 2017-04-01 14:15 | PDOC ---
PROGRESS NOTES Subjective Subjective SEEN IN FOLLOW UP OF ESRD Objective Objective Vital Signs Date Time Temp Pulse Resp B/P (MAP) Pulse Ox O2 Delivery O2 Flow Rate FiO2 04/01/17 10:28 100.3 76 18 151/76 (101) 97 Room Air 100.3 04/01/17 08:00 3.0 Intake and Output 04/01/17 07:00 Intake Total 1100 ml Balance 1100 ml Intake Oral 1100 ml # Voids 1 Physical Exam Abdomen: Normal bowel sounds, Soft, No tenderness, No hepatosplenomegaly, No masses Heart: Regular rate, Normal S1, Normal S2, No murmurs, Gallops Extremities: No clubbing, No cyanosis, No edema, Normal pulses, No tenderness/ swelling, Other (BLE EDEMA) General: Alert, Oriented X3, Cooperative, No acute distress Lungs: Clear to auscultation, Normal air movement Psych/Mental Status: Mental status NL, Mood NL Diagnosis RENAL FAILURE: ESRD Assessment Assessment Problems Medical Problems: (1) ESRD on peritoneal dialysis Status: Acute (2) Pulmonary edema Status: Acute (3) Volume overload Status: Acute Plan Plan of Care DIALYSIS TODAY AND FOLLOW . NO PD TODAY Comment Review of Relevant I have reviewed the following items alex (where applicable) has been applied. Labs Laboratory Tests Test 03/30/17 17:33 03/30/17 17:59 03/30/17 18:31 03/30/17 19:05 Glucose (Fingerstick) 68 mg/dL (70-99) 139 mg/dL (70-99) 118 mg/dL (70-99) Troponin I Quantitative 0.081 ng/mL (0.000-0.055) Test 03/30/17 19:39 03/30/17 21:32 03/30/17 22:45 03/31/17 01:30 Glucose (Fingerstick) 113 mg/dL (70-99) 120 mg/dL (70-99) Creatine Kinase 973 U/L (26-192) Creatine Kinase MB (Mass) 23.2 ng/mL (0.0-3.6) Creatine Kinase MB Relative Index 2.4 % (0-4) Troponin I Quantitative 0.077 ng/mL (0.000-0.055) 0.071 ng/mL (0.000-0.055) White Blood Count 7.1 x10^3/uL (4.0-11.0) Red Blood Count 3.37 x10^6/uL (3.50-5.40) Hemoglobin 9.0 g/dL (12.0-15.5) Hematocrit 29.5 % (36.0-47.0) Mean Corpuscular Volume 88 fL (79-100) Mean Corpuscular Hemoglobin 27 pg (25-35) Mean Corpuscular Hemoglobin Concent 31 g/dL (31-37) Red Cell Distribution Width 16.9 % (11.5-14.5) Platelet Count 313 x10^3/uL (140-400) Neutrophils (%) (Auto) 80 % (31-73) Lymphocytes (%) (Auto) 14 % (24-48) Monocytes (%) (Auto) 6 % (0-9) Eosinophils (%) (Auto) 0 % (0-3) Basophils (%) (Auto) 1 % (0-3) Neutrophils # (Auto) 5.7 x10^3uL (1.8-7.7) Lymphocytes # (Auto) 1.0 x10^3/uL (1.0-4.8) Monocytes # (Auto) 0.4 x10^3/uL (0.0-1.1) Eosinophils # (Auto) 0.0 x10^3/uL (0.0-0.7) Basophils # (Auto) 0.0 x10^3/uL (0.0-0.2) Sodium Level 144 mmol/L (136-145) Potassium Level 5.8 mmol/L (3.5-5.1) Chloride Level 108 mmol/L (98-107) Carbon Dioxide Level 24 mmol/L (21-32) Anion Gap 12 (6-14) Blood Urea Nitrogen 54 mg/dL (7-20) Creatinine 6.4 mg/dL (0.6-1.0) Estimated GFR (Cockcroft-Gault) 7.0 Glucose Level 223 mg/dL (70-99) Hemoglobin A1c 8.1 % (4.8-5.6) Calcium Level 7.1 mg/dL (8.5-10.1) Triglycerides Level 103 mg/dL (0-150) Cholesterol Level 131 mg/dL (0-200) LDL Cholesterol, Calculated 71 mg/dL (0-100) VLDL Cholesterol, Calculated 21 mg/dL (0-40) Non-HDL Cholesterol Calculated 92 mg/dL (0-129) HDL Cholesterol 39 mg/dL (40-60) Cholesterol/HDL Ratio 3.4 Thyroid Stimulating Hormone (TSH) 190.266 uIU/mL (0.358-3.74) Test 03/31/17 07:32 03/31/17 11:33 03/31/17 20:51 04/01/17 07:08 Glucose (Fingerstick) 162 mg/dL (70-99) 87 mg/dL (70-99) 98 mg/dL (70-99) 90 mg/dL (70-99) Test 04/01/17 07:10 04/01/17 11:59 Hemoglobin 9.2 g/dL (12.0-15.5) Sodium Level 141 mmol/L (136-145) Potassium Level 4.2 mmol/L (3.5-5.1) Chloride Level 104 mmol/L (98-107) Carbon Dioxide Level 31 mmol/L (21-32) Anion Gap 6 (6-14) Blood Urea Nitrogen 26 mg/dL (7-20) Creatinine 4.3 mg/dL (0.6-1.0) Estimated GFR (Cockcroft-Gault) 11.1 Glucose Level 94 mg/dL (70-99) Calcium Level 7.1 mg/dL (8.5-10.1) Phosphorus Level 5.0 mg/dL (2.6-4.7) Magnesium Level 1.8 mg/dL (1.8-2.4) Albumin 1.8 g/dL (3.4-5.0) Free Thyroxine 0.34 ng/dL (0.76-1.46) Free Triiodothyronine (T3) pg/mL 0.58 pg/mL (2.18-3.98) Glucose (Fingerstick) 95 mg/dL (70-99) Laboratory Tests Test 03/31/17 20:51 04/01/17 07:08 04/01/17 07:10 04/01/17 11:59 Glucose (Fingerstick) 98 mg/dL (70-99) 90 mg/dL (70-99) 95 mg/dL (70-99) Hemoglobin 9.2 g/dL (12.0-15.5) Sodium Level 141 mmol/L (136-145) Potassium Level 4.2 mmol/L (3.5-5.1) Chloride Level 104 mmol/L (98-107) Carbon Dioxide Level 31 mmol/L (21-32) Anion Gap 6 (6-14) Blood Urea Nitrogen 26 mg/dL (7-20) Creatinine 4.3 mg/dL (0.6-1.0) Estimated GFR (Cockcroft-Gault) 11.1 Glucose Level 94 mg/dL (70-99) Calcium Level 7.1 mg/dL (8.5-10.1) Phosphorus Level 5.0 mg/dL (2.6-4.7) Magnesium Level 1.8 mg/dL (1.8-2.4) Albumin 1.8 g/dL (3.4-5.0) Free Thyroxine 0.34 ng/dL (0.76-1.46) Free Triiodothyronine (T3) pg/mL 0.58 pg/mL (2.18-3.98) Microbiology 03/30/17 Blood Culture - Preliminary, Resulted NO GROWTH AFTER 1 DAY 03/31/17 Aerobic Culture - Preliminary, Resulted 03/31/17 Aerobic Culture Result 1 (EMMA) - Preliminary, Resulted Medications Current Medications Albuterol/ Ipratropium (Duoneb) 3 ml 1X ONCE NEB Last administered on 11:37; Start 03/30/17 at 11:30; Stop 03/30/17 at 11:31; Status DC Furosemide (Lasix) 20 mg 1X ONCE IVP Last administered on 03/30/17 13:04; Start 03/30/17 at 12:45; Stop 03/30/17 at 12:46; Status DC Sodium Bicarbonate 50 meq 1X ONCE IV Last administered on 03/30/17 14:00; Start 03/30/17 at 13:45; Stop 03/30/17 at 13:46; Status DC Calcium Gluconate (Calcium Gluconate) 1,000 mg 1X ONCE IVP Last administered on 03/30/17 14:00; Start 03/30/17 at 13:45; Stop 03/30/17 at 13:46; Status DC Albuterol Sulfate (Ventolin Neb Soln) 10 mg 1X ONCE CONT NEB Last administered on 03/30/17 14:04; Start 03/30/17 at 13:45; Stop 03/30/17 at 13:46; Status DC Insulin Human Regular (NovoLIN R VIAL) 10 unit 1X ONCE IV Last administered on 03/30/17 14:18; Start 03/30/17 at 13:45; Stop 03/30/17 at 13:46; Status DC Dextrose (Dextrose 50%-Water Syringe) 25 gm 1X ONCE IV Last administered on 14:00; Start 03/30/17 at 13:45; Stop 03/30/17 at 13:46; Status DC Ondansetron HCl (Zofran) 4 mg PRN Q8HRS PRN IV NAUSEA/VOMITING Last administered on 03/30/17 18:30; Start 03/30/17 at 13:45; Stop 03/31/17 at 13:44; Status DC Morphine Sulfate 2 mg PRN Q2HR PRN IV PAIN Last administered on 03/30/17 22:22 ; Start 03/30/17 at 13:45; Stop 03/31/17 at 13:44; Status DC Amlodipine Besylate (Norvasc) 10 mg DAILY PO Last administered on 03/31/17 08: 30; Start 03/31/17 at 09:00 Carvedilol (Coreg) 12.5 mg BIDWMEALS PO Last administered on 03/31/17 08:28; Start 03/30/17 at 19:00 Diphenoxylate HCl/ Atropine (Lomotil) 1 tab TID PO Last administered on 11:01; Start 03/30/17 at 21:00 Levothyroxine Sodium (Synthroid) 300 mcg DAILY06 PO Last administered on 06:05; Start 03/31/17 at 06:00 Lisinopril (Prinivil) 10 mg DAILY PO ; Start 03/31/17 at 09:00; Stop 03/31/17 at 12:40; Status DC Oxycodone/ Acetaminophen (Percocet 5/325) 1 tab QID PRN PO PAIN Last administered on 03/31/17 21:27; Start 03/30/17 at 17:30 Quetiapine Fumarate (SEROquel) 25 mg DAILY08 PO Last administered on 04/01/17 12:15; Start 03/31/17 at 08:00 Sevelamer Carbonate (Renvela) 1,600 mg TIDBFRMEAL PO Last administered on 11:01; Start 03/31/17 at 07:30 Atorvastatin Calcium (Lipitor) 40 mg QHS PO Last administered on 03/31/17 21:26 ; Start 03/30/17 at 21:00 Gabapentin (Neurontin) 600 mg DAILY PO Last administered on 04/01/17 12:14; Start 03/31/17 at 09:00 Insulin Aspart (NovoLOG) 10 units TIDAC SQ ; Start 03/31/17 at 07:30 Quetiapine Fumarate (SEROquel) 300 mg QHS PO Last administered on 03/31/17 21: 26; Start 03/30/17 at 21:00 Losartan Potassium (Cozaar) 100 mg DAILY PO ; Start 03/31/17 at 09:00; Stop at 12:40; Status DC Vitamin B Complex/ Vitamin C (Nereida-Colin) 1 tab DAILY PO Last administered on 11:02; Start 03/31/17 at 09:00 Dextrose (Dextrose 50%-Water Syringe) 25 gm 1X ONCE IV Last administered on 17:45; Start 03/30/17 at 17:45; Stop 03/30/17 at 17:46; Status DC Insulin Aspart (NovoLOG) 0-9 UNITS TIDWMEALS SQ ; Start 03/31/17 at 08:00 Dextrose (Dextrose 50%-Water Syringe) 12.5 gm PRN Q15MIN PRN IV SEE COMMENTS; Start 03/30/17 at 17:45 Enoxaparin Sodium (Lovenox 40mg Syringe) 40 mg Q12HR SQ ; Start 03/30/17 at 21:00 ; Status UNV Furosemide (Lasix) 40 mg BID92 IVP Last administered on 03/31/17 08:34; Start 03/31/17 at 09:00 Heparin Sodium (Porcine) (Heparin Sq) 5,000 unit Q8HRS SQ Last administered on 04/01/17 06:09; Start 03/30/17 at 22:00 Furosemide (Lasix) 80 mg 1X ONCE IVP Last administered on 03/30/17 22:11; Start 03/30/17 at 21:00; Stop 03/30/17 at 21:01; Status DC Hydralazine HCl (Apresoline) 10 mg PRN Q4HRS PRN IVP ELEVATED BP, SEE COMMENTS Last administered on 03/30/17 22:18; Start 03/30/17 at 21:00 Prochlorperazine Edisylate (Compazine) 5 mg PRN Q6HRS PRN IV NAUSEA/VOMITING Last administered on 03/30/17 22:10; Start 03/30/17 at 21:15 Nitroglycerin (Nitrostat) 0.4 mg STK-MED ONCE SL ; Start 03/30/17 at 21:55; Stop 03/30/17 at 21:56; Status DC Nitroglycerin (Nitrostat) 0.4 mg PRN Q5MIN PRN SL X 3 DOSES FOR CHEST PAIN Last administered on 03/30/17 22:09; Start 03/30/17 at 22:00 Darbepoetin Nils (Aranesp) 60 mcg WEEKLYHS SQ Last administered on 03/31/17 21: 26; Start 03/31/17 at 21:00 Magnesium Sulfate/ Dextrose 50 ml @ 25 mls/hr PRN DAILY PRN IV for Mag < 1.7 on am labs; Start 03/31/17 at 11:15 Sodium Chloride 1,000 ml @ 1,000 mls/hr Q1H PRN IV hypotension; Start 03/31/17 at 12:24; Stop 03/31/17 at 18:23; Status DC Diphenhydramine HCl (Benadryl) 25 mg 1X PRN PRN IV ITCHING; Start 03/31/17 at 12 :30; Stop 04/01/17 at 12:29; Status DC Diphenhydramine HCl (Benadryl) 25 mg 1X PRN PRN IV ITCHING; Start 03/31/17 at 12 :30; Stop 04/01/17 at 12:29; Status DC Sodium Chloride 1,000 ml @ 400 mls/hr Q2H30M PRN IV PATENCY; Start 03/31/17 at 12:24; Stop 04/01/17 at 00:23; Status DC Info (PHARMACY MONITORING -- do not chart) 1 each PRN DAILY PRN MC SEE COMMENTS ; Start 03/31/17 at 12:30 Info (PHARMACY MONITORING -- do not chart) 1 each PRN DAILY PRN MC SEE COMMENTS ; Start 03/31/17 at 12:30; Status UNV Lisinopril (Prinivil) 20 mg DAILY PO ; Start 04/01/17 at 09:00; Stop 04/01/17 at 09:00; Status DC Aspirin (Ecotrin) 81 mg [id number] PO Last administered on 04/01/17t 11:01; Start 03/31/17 at 13:45 Losartan Potassium (Cozaar) 100 mg DAILY PO ; Start 03/31/17 at 14:00; Status Cancel Losartan Potassium (Cozaar) 100 mg DAILY PO ; Start 04/01/17 at 09:00 Active Scripts Active Percocet 5-325 Mg Tablet (Oxycodone/Acetaminophen) 1 Each Tablet 1-2 Tab PO Q4- 6HRS Cefpodoxime Proxetil 200 Mg Tablet 200 Mg PO DAILY Lomotil Tablet (Diphenoxylate Hcl/Atropine) 1 Each Tablet 1 Tab PO TID Reported Levemir (Insulin Detemir) 100 Unit/1 Ml Vial 35 Unit SQ HS Buspirone Hcl 15 Mg Tablet 1 Tab PO BID Nephro-Colin Rx Tablet (Vit B Cmplx 3/Fa/Vit C/Biotin) 1 Each Tablet 1 Each PO DAILY Renvela (Sevelamer Carbonate) 800 Mg Tablet 800 Mg PO PRN BFRMEAL PRN Renvela (Sevelamer Carbonate) 800 Mg Tablet 2 Tab PO TIDBFRMEAL Nereida-Colin Rx Tablet (Vit B Cmplx 3/Fa/Vit C/Biotin) 1 Each Tablet 1 Each PO K-Tab ER (Potassium Chloride) 20 Meq Tablet.er 40 Meq PO DAILY Lisinopril 10 Mg Tablet 1 Tab PO DAILY Norvasc (Amlodipine Besylate) 10 Mg Tablet 10 Mg PO DAILY Novolog (Insulin Aspart) 100 Unit/1 Ml Cartridge 100 Unit SQ sliding scale with meals Novolog (Insulin Aspart) 100 Unit/1 Ml Cartridge 10 Unit SQ TIDBFRMEAL Gabapentin 600 Mg Tablet 1 Tab PO DAILY Lipitor (Atorvastatin Calcium) 80 Mg Tablet 40 Mg PO QHS Coreg (Carvedilol) 12.5 Mg Tablet 1 Tab PO BID Diovan (Valsartan) 160 Mg Tablet 2 Tab PO HS Synthroid (Levothyroxine Sodium) 150 Mcg Tablet 2 Tab PO DAILY06 Seroquel (Quetiapine Fumarate) 25 Mg Tablet 1 Tab PO DAILY08 Seroquel (Quetiapine Fumarate) 300 Mg Tablet 300 Mg PO HS Vitals/I & O Vital Sign - Last 24 Hours 03/31/17 03/31/17 03/31/17 03/31/17 14:30 19:00 20:00 21:27 Temp 97.9 98.4 97.9 98.4 Pulse 69 73 Resp 20 B/P (MAP) 164/71 (102) 154/67 (96) Pulse Ox 88 O2 Delivery Room Air Room Air Nasal Cannula Room Air O2 Flow Rate 3.0 03/31/17 03/31/17 04/01/17 04/01/17 22:46 22:51 03:00 07:00 Temp 98.3 97.8 98.7 98.3 97.8 98.7 Pulse 76 69 74 Resp 20 20 17 B/P (MAP) 124/56 (78) 110/53 (72) 141/76 (97) Pulse Ox 91 96 98 O2 Delivery Room Air Nasal Cannula Room Air Room Air O2 Flow Rate 3.0 04/01/17 04/01/17 04/01/17 08:00 08:00 10:28 Temp 100.3 100.3 Pulse 74 76 Resp 18 B/P (MAP) 141/76 151/76 (101) Pulse Ox 97 O2 Delivery Nasal Cannula Room Air O2 Flow Rate 3.0 Intake and Output 03/31/17 03/31/17 04/01/17 15:00 23:00 07:00 Intake Total 300 ml 400 ml 400 ml Balance 300 ml 400 ml 400 ml ABRAN BRIGGS MD Apr 01, 2017 14:15
--- NOTE | 2017-04-01 14:17 | PDOC ---
SUBJECTIVE Subjective C/O watery stool diarrhea She fell this morning and landed on the trash can without any injury OBJECTIVE Objective Resting flat in bed in NAD she definitely more comfortable today than yesterday Vital Signs Vital Signs Date Time Temp Pulse Resp B/P (MAP) Pulse Ox O2 Delivery O2 Flow Rate FiO2 04/01/17 10:28 100.3 76 18 151/76 (101) 97 Room Air 100.3 04/01/17 08:00 Nasal Cannula 3.0 04/01/17 08:00 74 141/76 04/01/17 07:00 98.7 74 17 141/76 (97) 98 Room Air 98.7 04/01/17 03:00 97.8 69 20 110/53 (72) 96 Room Air 97.8 03/31/17 22:51 Nasal Cannula 3.0 03/31/17 22:46 98.3 76 20 124/56 (78) 91 Room Air 98.3 03/31/17 21:27 Room Air 03/31/17 20:00 Nasal Cannula 3.0 03/31/17 19:00 98.4 73 20 154/67 (96) 88 Room Air 98.4 03/31/17 14:30 97.9 69 164/71 (102) Room Air 97.9 I & O Intake and Output 04/01/17 07:00 Intake Total 1100 ml Balance 1100 ml Intake Oral 1100 ml # Voids 1 PHYSICAL EXAM Physical Exam The patient is looked well pale but not jaundiced VSS ASSESSMENT/PLAN Assessment/Plan ESRD for which she was on peritoneal dialysis CHF PULMONARY EDEMA Severe hypothyroidism with markedly elevated TSH RECURRENT BOUT OF [employer] MOVEMENTS Problems: COMMENT Lab Laboratory Tests Test 03/31/17 20:51 04/01/17 07:08 04/01/17 07:10 04/01/17 11:59 Glucose (Fingerstick) 98 mg/dL (70-99) 90 mg/dL (70-99) 95 mg/dL (70-99) Hemoglobin 9.2 g/dL (12.0-15.5) Sodium Level 141 mmol/L (136-145) Potassium Level 4.2 mmol/L (3.5-5.1) Chloride Level 104 mmol/L (98-107) Carbon Dioxide Level 31 mmol/L (21-32) Anion Gap 6 (6-14) Blood Urea Nitrogen 26 mg/dL (7-20) Creatinine 4.3 mg/dL (0.6-1.0) Estimated GFR (Cockcroft-Gault) 11.1 Glucose Level 94 mg/dL (70-99) Calcium Level 7.1 mg/dL (8.5-10.1) Phosphorus Level 5.0 mg/dL (2.6-4.7) Magnesium Level 1.8 mg/dL (1.8-2.4) Albumin 1.8 g/dL (3.4-5.0) Free Thyroxine 0.34 ng/dL (0.76-1.46) Free Triiodothyronine (T3) pg/mL 0.58 pg/mL (2.18-3.98) MAURICE RICHARD MD Apr 01, 2017 14:17
[2017-04-01 15:00] VITALS: BP 148/75
[2017-04-01] MEDS ORDERED: IV NORMAL SALINE 1000ML BAG 1,000 ML IV PRN ×2 (15:29)
[2017-04-01] MEDS ORDERED: DIALYSIS PATIENT. MC PRN ×2 (15:30)
[2017-04-01 16:14] LABS: THYROXINE 1.7 ug/dL (4.5-12.0)
[2017-04-01 19:00] VITALS: BP 144/66
[2017-04-01] MEDS: guaiFENesin DM 200MG/20MG 10 ML SYRUP PO PRN (21:52)
[2017-04-01] MEDS: ATORVASTATIN CALCIUM 40 MG TABLET. PO SCH (21:53)
[2017-04-01] MEDS: QUEtiapine 100 MG TABLET. PO SCH (21:53)
[2017-04-01 23:00] VITALS: BP 125/48
[2017-04-02 03:00] VITALS: BP 113/51
[2017-04-02 05:58] LABS: ALBUMIN 1.7 g/dL (3.4-5.0); CALCIUM 7.1 mg/dL (8.5-10.1); CREATININE 3.4 mg/dL (0.6-1.0); GFR 14.5; PHOSPHORUS 3.4 mg/dL (2.6-4.7); POTASSIUM 3.9 mmol/L (3.5-5.1)
[2017-04-02] MEDS: LEVOTHYROXINE 150 MCG TABLET PO SCH (06:42)
[2017-04-02] MEDS: HEPARIN PF for SUB-Q USE 5,000 UNIT/0.5 ML VIAL. SQ SCH ×3 (06:45→22:01)
[2017-04-02 07:00] VITALS: BP 131/66
[2017-04-02] MEDS: INSULIN ASPART 300 UNITS/3 ML INSULN.PEN SQ SCH ×6 (07:30→18:41)
[2017-04-02] MEDS: FOLIC/VIT B COMP W-C (RENAL) TABLET. PO SCH (07:56)
[2017-04-02] MEDS: ASPIRIN ENTERIC COATED 81 MG TABLET.DR. PO SCH (07:57)
[2017-04-02] MEDS: SEVELAMER CARBONATE 800 MG TABLET. PO SCH ×3 (07:57→17:28)
[2017-04-02] MEDS: amLODIPine BESYLATE 10 MG TABLET PO SCH (07:58)
[2017-04-02] MEDS: LOSARTAN POTASSIUM 50 MG TABLET. PO SCH (07:59)
[2017-04-02] MEDS: CARVEDILOL 12.5 MG TABLET. PO SCH ×2 (08:00→17:33)
[2017-04-02] MEDS: QUEtiapine 25 MG TABLET. PO SCH (08:00)
[2017-04-02] MEDS: GABAPENTIN 300 MG CAPSULE. PO SCH (08:00)
[2017-04-02] MEDS: DIPHENOXYLATE/ATROPINE TABLET. PO SCH ×3 (08:00→20:27)
[2017-04-02] MEDS: FUROSEMIDE 40 MG/4 ML VIAL. IVP SCH ×2 (08:01→15:06)
[2017-04-02] MEDS ORDERED: [UNRECOGNIZED DRUG - REMARK] MC ONE (09:00)
[2017-04-02 11:00] VITALS: BP 129/77
[2017-04-02] MEDS: IPRATRPIUM/ALBUTEROL 0.5/2.5MG 3 ML NEBU. NEB SCH ×3 (11:34→20:01)
[2017-04-02] MEDS: guaiFENesin DM 200MG/20MG 10 ML SYRUP PO PRN (12:30)
--- NOTE | 2017-04-02 12:51 | PN ---
PROGRESS NOTES Subjective Subjective Feeling better No chest tightness or wheezing Dialyzed yesterday and 4 liters were rmoved No LLEdema Objective Objective Vital Signs Date Time Temp Pulse Resp B/P (MAP) Pulse Ox O2 Delivery O2 Flow Rate FiO2 04/02/17 11:38 94 Nasal Cannula 2.0 04/02/17 11:00 98.2 87 18 129/77 (94) 98.2 Intake and Output 04/02/17 07:00 Intake Total 620 ml Output Total 400 ml Balance 220 ml Intake Oral 620 ml Output Urine Total 400 ml # Voids 3 # Bowel Movements 2 Physical Exam Physical Exam Setting comfortably in her chair clearly in NAD Vital signs are stable chest CTA no crepitation or rhonchi abdomen soft non tender COMMENT The patient is opting for home hemodialysis Diagnosis DIAGNOSIS ESRD on peritoneal dialysis Fluid overlaod Uremia severe hypothyroidism PROBLEM LIST Problems Medical Problems: (1) ESRD on peritoneal dialysis Status: Acute (2) Pulmonary edema Status: Acute (3) Volume overload Status: Acute Assessment Assessment Problems Medical Problems: (1) ESRD on peritoneal dialysis Status: Acute (2) Pulmonary edema Status: Acute (3) Volume overload Status: Acute Comment Review of Relevant I have reviewed the following items alex (where applicable) has been applied. Labs Laboratory Tests Test 03/31/17 20:51 04/01/17 07:08 04/01/17 07:10 04/01/17 11:59 Glucose (Fingerstick) 98 mg/dL (70-99) 90 mg/dL (70-99) 95 mg/dL (70-99) Hemoglobin 9.2 g/dL (12.0-15.5) Sodium Level 141 mmol/L (136-145) Potassium Level 4.2 mmol/L (3.5-5.1) Chloride Level 104 mmol/L (98-107) Carbon Dioxide Level 31 mmol/L (21-32) Anion Gap 6 (6-14) Blood Urea Nitrogen 26 mg/dL (7-20) Creatinine 4.3 mg/dL (0.6-1.0) Estimated GFR (Cockcroft-Gault) 11.1 Glucose Level 94 mg/dL (70-99) Calcium Level 7.1 mg/dL (8.5-10.1) Phosphorus Level 5.0 mg/dL (2.6-4.7) Magnesium Level 1.8 mg/dL (1.8-2.4) Albumin 1.8 g/dL (3.4-5.0) Free Thyroxine 0.34 ng/dL (0.76-1.46) Thyroxine (T4) 1.7 ug/dL (4.5-12.0) Free Triiodothyronine (T3) pg/mL 0.58 pg/mL (2.18-3.98) Total Triiodothyronine 40 ng/dL (71-180) Test 04/01/17 16:41 04/01/17 20:41 04/02/17 03:55 04/02/17 07:05 Glucose (Fingerstick) 102 mg/dL (70-99) 105 mg/dL (70-99) 85 mg/dL (70-99) Sodium Level 139 mmol/L (136-145) Potassium Level 3.9 mmol/L (3.5-5.1) Chloride Level 103 mmol/L (98-107) Carbon Dioxide Level 32 mmol/L (21-32) Anion Gap 4 (6-14) Blood Urea Nitrogen 13 mg/dL (7-20) Creatinine 3.4 mg/dL (0.6-1.0) Estimated GFR (Cockcroft-Gault) 14.5 Glucose Level 87 mg/dL (70-99) Calcium Level 7.1 mg/dL (8.5-10.1) Phosphorus Level 3.4 mg/dL (2.6-4.7) Magnesium Level 1.7 mg/dL (1.8-2.4) Albumin 1.7 g/dL (3.4-5.0) Test 04/02/17 10:52 Glucose (Fingerstick) 91 mg/dL (70-99) Laboratory Tests Test 04/01/17 16:41 04/01/17 20:41 04/02/17 03:55 04/02/17 07:05 Glucose (Fingerstick) 102 mg/dL (70-99) 105 mg/dL (70-99) 85 mg/dL (70-99) Sodium Level 139 mmol/L (136-145) Potassium Level 3.9 mmol/L (3.5-5.1) Chloride Level 103 mmol/L (98-107) Carbon Dioxide Level 32 mmol/L (21-32) Anion Gap 4 (6-14) Blood Urea Nitrogen 13 mg/dL (7-20) Creatinine 3.4 mg/dL (0.6-1.0) Estimated GFR (Cockcroft-Gault) 14.5 Glucose Level 87 mg/dL (70-99) Calcium Level 7.1 mg/dL (8.5-10.1) Phosphorus Level 3.4 mg/dL (2.6-4.7) Magnesium Level 1.7 mg/dL (1.8-2.4) Albumin 1.7 g/dL (3.4-5.0) Test 04/02/17 10:52 Glucose (Fingerstick) 91 mg/dL (70-99) Microbiology 03/30/17 Blood Culture - Preliminary, Resulted NO GROWTH AFTER 2 DAYS 03/31/17 Aerobic Culture - Preliminary, Resulted 03/31/17 Aerobic Culture Result 1 (EMMA) - Preliminary, Resulted Medications Current Medications Albuterol/ Ipratropium (Duoneb) 3 ml 1X ONCE NEB Last administered on 11:37; Start 03/30/17 at 11:30; Stop 03/30/17 at 11:31; Status DC Furosemide (Lasix) 20 mg 1X ONCE IVP Last administered on 03/30/17 13:04; Start 03/30/17 at 12:45; Stop 03/30/17 at 12:46; Status DC Sodium Bicarbonate 50 meq 1X ONCE IV Last administered on 03/30/17 14:00; Start 03/30/17 at 13:45; Stop 03/30/17 at 13:46; Status DC Calcium Gluconate (Calcium Gluconate) 1,000 mg 1X ONCE IVP Last administered on 03/30/17 14:00; Start 03/30/17 at 13:45; Stop 03/30/17 at 13:46; Status DC Albuterol Sulfate (Ventolin Neb Soln) 10 mg 1X ONCE CONT NEB Last administered on 03/30/17 14:04; Start 03/30/17 at 13:45; Stop 03/30/17 at 13:46; Status DC Insulin Human Regular (NovoLIN R VIAL) 10 unit 1X ONCE IV Last administered on 03/30/17 14:18; Start 03/30/17 at 13:45; Stop 03/30/17 at 13:46; Status DC Dextrose (Dextrose 50%-Water Syringe) 25 gm 1X ONCE IV Last administered on 14:00; Start 03/30/17 at 13:45; Stop 03/30/17 at 13:46; Status DC Ondansetron HCl (Zofran) 4 mg PRN Q8HRS PRN IV NAUSEA/VOMITING Last administered on 03/30/17 18:30; Start 03/30/17 at 13:45; Stop 03/31/17 at 13:44; Status DC Morphine Sulfate 2 mg PRN Q2HR PRN IV PAIN Last administered on 03/30/17 22:22 ; Start 03/30/17 at 13:45; Stop 03/31/17 at 13:44; Status DC Amlodipine Besylate (Norvasc) 10 mg DAILY PO Last administered on 04/02/17 07: 58; Start 03/31/17 at 09:00 Carvedilol (Coreg) 12.5 mg BIDWMEALS PO Last administered on 04/02/17 08:00; Start 03/30/17 at 19:00 Diphenoxylate HCl/ Atropine (Lomotil) 1 tab TID PO Last administered on 08:00; Start 03/30/17 at 21:00 Levothyroxine Sodium (Synthroid) 300 mcg DAILY06 PO Last administered on 06:42; Start 03/31/17 at 06:00 Lisinopril (Prinivil) 10 mg DAILY PO ; Start 03/31/17 at 09:00; Stop 03/31/17 at 12:40; Status DC Oxycodone/ Acetaminophen (Percocet 5/325) 1 tab QID PRN PO PAIN Last administered on 03/31/17 21:27; Start 03/30/17 at 17:30 Quetiapine Fumarate (SEROquel) 25 mg DAILY08 PO Last administered on 04/02/17 08:00; Start 03/31/17 at 08:00 Sevelamer Carbonate (Renvela) 1,600 mg TIDBFRMEAL PO Last administered on 12:29; Start 03/31/17 at 07:30 Atorvastatin Calcium (Lipitor) 40 mg QHS PO Last administered on 04/01/17 21:53 ; Start 03/30/17 at 21:00 Gabapentin (Neurontin) 600 mg DAILY PO Last administered on 04/02/17 08:00; Start 03/31/17 at 09:00 Insulin Aspart (NovoLOG) 10 units TIDAC SQ ; Start 03/31/17 at 07:30 Quetiapine Fumarate (SEROquel) 300 mg QHS PO Last administered on 04/01/17 21: 53; Start 03/30/17 at 21:00 Losartan Potassium (Cozaar) 100 mg DAILY PO ; Start 03/31/17 at 09:00; Stop at 12:40; Status DC Vitamin B Complex/ Vitamin C (Nereida-Colin) 1 tab DAILY PO Last administered on 07:56; Start 03/31/17 at 09:00 Dextrose (Dextrose 50%-Water Syringe) 25 gm 1X ONCE IV Last administered on 17:45; Start 03/30/17 at 17:45; Stop 03/30/17 at 17:46; Status DC Insulin Aspart (NovoLOG) 0-9 UNITS TIDWMEALS SQ ; Start 03/31/17 at 08:00 Dextrose (Dextrose 50%-Water Syringe) 12.5 gm PRN Q15MIN PRN IV SEE COMMENTS; Start 03/30/17 at 17:45 Enoxaparin Sodium (Lovenox 40mg Syringe) 40 mg Q12HR SQ ; Start 03/30/17 at 21:00 ; Status UNV Furosemide (Lasix) 40 mg BID92 IVP Last administered on 04/02/17 08:01; Start 03/31/17 at 09:00 Heparin Sodium (Porcine) (Heparin Sq) 5,000 unit Q8HRS SQ Last administered on 04/02/17 06:45; Start 03/30/17 at 22:00 Furosemide (Lasix) 80 mg 1X ONCE IVP Last administered on 03/30/17 22:11; Start 03/30/17 at 21:00; Stop 03/30/17 at 21:01; Status DC Hydralazine HCl (Apresoline) 10 mg PRN Q4HRS PRN IVP ELEVATED BP, SEE COMMENTS Last administered on 03/30/17 22:18; Start 03/30/17 at 21:00 Prochlorperazine Edisylate (Compazine) 5 mg PRN Q6HRS PRN IV NAUSEA/VOMITING Last administered on 03/30/17 22:10; Start 03/30/17 at 21:15 Nitroglycerin (Nitrostat) 0.4 mg STK-MED ONCE SL ; Start 03/30/17 at 21:55; Stop 03/30/17 at 21:56; Status DC Nitroglycerin (Nitrostat) 0.4 mg PRN Q5MIN PRN SL X 3 DOSES FOR CHEST PAIN Last administered on 03/30/17 22:09; Start 03/30/17 at 22:00 Darbepoetin Nils (Aranesp) 60 mcg WEEKLYHS SQ Last administered on 03/31/17 21: 26; Start 03/31/17 at 21:00 Magnesium Sulfate/ Dextrose 50 ml @ 25 mls/hr PRN DAILY PRN IV for Mag < 1.7 on am labs; Start 03/31/17 at 11:15 Sodium Chloride 1,000 ml @ 1,000 mls/hr Q1H PRN IV hypotension; Start 03/31/17 at 12:24; Stop 03/31/17 at 18:23; Status DC Diphenhydramine HCl (Benadryl) 25 mg 1X PRN PRN IV ITCHING; Start 03/31/17 at 12 :30; Stop 04/01/17 at 12:29; Status DC Diphenhydramine HCl (Benadryl) 25 mg 1X PRN PRN IV ITCHING; Start 03/31/17 at 12 :30; Stop 04/01/17 at 12:29; Status DC Sodium Chloride 1,000 ml @ 400 mls/hr Q2H30M PRN IV PATENCY; Start 03/31/17 at 12:24; Stop 04/01/17 at 00:23; Status DC Info (PHARMACY MONITORING -- do not chart) 1 each PRN DAILY PRN MC SEE COMMENTS ; Start 03/31/17 at 12:30 Info (PHARMACY MONITORING -- do not chart) 1 each PRN DAILY PRN MC SEE COMMENTS ; Start 03/31/17 at 12:30; Status UNV Lisinopril (Prinivil) 20 mg DAILY PO ; Start 04/01/17 at 09:00; Stop 04/01/17 at 09:00; Status DC Aspirin (Ecotrin) 81 mg DAILYWBKFT PO Last administered on 04/02/17 07:57; Start 03/31/17 at 13:45 Losartan Potassium (Cozaar) 100 mg DAILY PO ; Start 03/31/17 at 14:00; Status Cancel Losartan Potassium (Cozaar) 100 mg DAILY PO Last administered on 04/02/17 07:59 ; Start 04/01/17 at 09:00 Sodium Chloride 1,000 ml @ 1,000 mls/hr Q1H PRN IV hypotension; Start 04/01/17 at 15:29; Stop 04/01/17 at 21:28; Status DC Sodium Chloride 1,000 ml @ 400 mls/hr Q2H30M PRN IV PATENCY; Start 04/01/17 at 15:29; Stop 04/02/17 at 03:28; Status DC Info (PHARMACY MONITORING -- do not chart) 1 each PRN DAILY PRN MC SEE COMMENTS ; Start 04/01/17 at 15:30; Status UNV Info (PHARMACY MONITORING -- do not chart) 1 each PRN DAILY PRN MC SEE COMMENTS ; Start 04/01/17 at 15:30; Status UNV Info 1 ea 1X ONCE MC ; Start 04/02/17 at 09:00; Stop 04/02/17 at 09:01; Status DC Guaifenesin (Robitussin Dm) 5 ml PRN Q4HRS PRN PO COUGH Last administered on 12:30; Start 04/01/17 at 21:45 Albuterol/ Ipratropium (Duoneb) 3 ml RTQID NEB Last administered on 04/02/17 11 :34; Start 04/02/17 at 12:00 Active Scripts Active Percocet 5-325 Mg Tablet (Oxycodone/Acetaminophen) 1 Each Tablet 1-2 Tab PO Q4- 6HRS Cefpodoxime Proxetil 200 Mg Tablet 200 Mg PO DAILY Lomotil Tablet (Diphenoxylate Hcl/Atropine) 1 Each Tablet 1 Tab PO TID Reported Levemir (Insulin Detemir) 100 Unit/1 Ml Vial 35 Unit SQ HS Buspirone Hcl 15 Mg Tablet 1 Tab PO BID Nephro-Colin Rx Tablet (Vit B Cmplx 3/Fa/Vit C/Biotin) 1 Each Tablet 1 Each PO DAILY Renvela (Sevelamer Carbonate) 800 Mg Tablet 800 Mg PO PRN BFRMEAL PRN Renvela (Sevelamer Carbonate) 800 Mg Tablet 2 Tab PO TIDBFRMEAL Nereida-Colin Rx Tablet (Vit B Cmplx 3/Fa/Vit C/Biotin) 1 Each Tablet 1 Each PO K-Tab ER (Potassium Chloride) 20 Meq Tablet.er 40 Meq PO DAILY Lisinopril 10 Mg Tablet 1 Tab PO DAILY Norvasc (Amlodipine Besylate) 10 Mg Tablet 10 Mg PO DAILY Novolog (Insulin Aspart) 100 Unit/1 Ml Cartridge 100 Unit SQ sliding scale with meals Novolog (Insulin Aspart) 100 Unit/1 Ml Cartridge 10 Unit SQ TIDBFRMEAL Gabapentin 600 Mg Tablet 1 Tab PO DAILY Lipitor (Atorvastatin Calcium) 80 Mg Tablet 40 Mg PO QHS Coreg (Carvedilol) 12.5 Mg Tablet 1 Tab PO BID Diovan (Valsartan) 160 Mg Tablet 2 Tab PO HS Synthroid (Levothyroxine Sodium) 150 Mcg Tablet 2 Tab PO DAILY06 Seroquel (Quetiapine Fumarate) 25 Mg Tablet 1 Tab PO DAILY08 Seroquel (Quetiapine Fumarate) 300 Mg Tablet 300 Mg PO HS Vitals/I & O Vital Sign - Last 24 Hours 04/01/17 04/01/17 04/01/17 04/01/17 15:00 19:00 20:00 23:00 Temp 99.7 98.9 99.3 99.7 98.9 99.3 Pulse 78 75 82 Resp 17 20 18 B/P (MAP) 148/75 (99) 144/66 (92) 125/48 (73) Pulse Ox 98 97 94 O2 Delivery Room Air Nasal Cannula Nasal Cannula Nasal Cannula O2 Flow Rate 3.0 3.0 3.0 04/02/17 04/02/17 04/02/17 04/02/17 03:00 07:00 07:58 07:59 Temp 99.1 98.9 99.1 98.9 Pulse 78 79 79 79 Resp 18 18 B/P (MAP) 113/51 (71) 131/66 (87) 131/66 131/66 Pulse Ox 96 93 O2 Delivery Nasal Cannula Nasal Cannula O2 Flow Rate 3.0 3.0 04/02/17 04/02/17 04/02/17 04/02/17 08:00 08:00 11:00 11:38 Temp 98.2 98.2 Pulse 79 87 Resp 18 B/P (MAP) 131/66 129/77 (94) Pulse Ox 92 94 O2 Delivery Nasal Cannula Nasal Cannula Nasal Cannula O2 Flow Rate 3.0 3.0 2.0 Intake and Output 04/01/17 04/01/17 04/02/17 15:00 23:00 07:00 Intake Total 420 ml 200 ml Output Total 400 ml 0 ml Balance -400 ml 420 ml 200 ml MAURICE RICHARD MD Apr 02, 2017 12:51
[2017-04-02 14:00] VITALS: BP 124/58
[2017-04-02 19:00] VITALS: BP 136/67
[2017-04-02] MEDS: QUEtiapine 100 MG TABLET. PO SCH (20:27)
[2017-04-02] MEDS: ATORVASTATIN CALCIUM 40 MG TABLET. PO SCH (20:27)
[2017-04-02 23:00] VITALS: BP 130/59
[2017-04-03 03:00] VITALS: BP 115/54
--- NOTE | 2017-04-03 05:38 | ACF ---
Admission Forms Criteria I am unable to edit this form. This patient was placed as observation status. This is the only avenue in our electronic medical record for me to document this. All of the above information is not my professional medical opinion. Admission Criteria Met?: Pending BETTE CAVAZOS Apr 03, 2017 05:38 PRERNA YOUSIF MD Apr 04, 2017 03:57
[2017-04-03 06:08] LABS: HEMATOCRIT 28.5 % (36.0-47.0); HEMOGLOBIN 8.7 g/dL (12.0-15.5); RED BLOOD COUNT 3.3 x10^6/uL (3.50-5.40); RED CELL DISTRIBUTION WIDTH 16.3 % (11.5-14.5); WHITE BLOOD COUNT 7.1 x10^3/uL (4.0-11.0)
[2017-04-03] MEDS: LEVOTHYROXINE 150 MCG TABLET PO SCH (06:15)
[2017-04-03] MEDS: HEPARIN PF for SUB-Q USE 5,000 UNIT/0.5 ML VIAL. SQ SCH ×2 (06:23→15:07)
[2017-04-03 06:32] LABS: ALBUMIN 1.6 g/dL (3.4-5.0); CALCIUM 6.5 mg/dL (8.5-10.1); CREATININE 4.7 mg/dL (0.6-1.0); PHOSPHORUS 4.1 mg/dL (2.6-4.7); POTASSIUM 4.2 mmol/L (3.5-5.1)
[2017-04-03 07:00] VITALS: BP 117/57
[2017-04-03] MEDS: IPRATRPIUM/ALBUTEROL 0.5/2.5MG 3 ML NEBU. NEB SCH ×3 (07:08→16:12)
[2017-04-03] MEDS: INSULIN ASPART 300 UNITS/3 ML INSULN.PEN SQ SCH ×6 (07:30→16:57)
[2017-04-03] MEDS: SEVELAMER CARBONATE 800 MG TABLET. PO SCH ×3 (07:30→16:49)
[2017-04-03] MEDS ORDERED: DIALYSIS PATIENT. MC PRN ×2 (08:00)
[2017-04-03] MEDS: CARVEDILOL 12.5 MG TABLET. PO SCH ×2 (08:00→16:51)
[2017-04-03] MEDS: DIPHENOXYLATE/ATROPINE TABLET. PO SCH ×2 (08:03→14:57)
[2017-04-03] MEDS: amLODIPine BESYLATE 10 MG TABLET PO SCH (09:00)
[2017-04-03] MEDS: LOSARTAN POTASSIUM 50 MG TABLET. PO SCH (09:00)
[2017-04-03] MEDS: FUROSEMIDE 40 MG/4 ML VIAL. IVP SCH ×2 (09:00→14:57)
[2017-04-03 11:21] VITALS: BP 129/67
[2017-04-03] MEDS: GABAPENTIN 300 MG CAPSULE. PO SCH (11:57)
[2017-04-03] MEDS: QUEtiapine 25 MG TABLET. PO SCH (11:57)
[2017-04-03] MEDS: FOLIC/VIT B COMP W-C (RENAL) TABLET. PO SCH (11:57)
[2017-04-03] MEDS: ASPIRIN ENTERIC COATED 81 MG TABLET.DR. PO SCH (11:57)
--- NOTE | 2017-04-03 12:02 | PDOC ---
Renal-Progress Notes Subjective Notes Notes NO COMPLAINTS History of Present Illness Hx of present illness FEELING BETTER Vitals Vitals Vital Signs Date Time Temp Pulse Resp B/P (MAP) Pulse Ox O2 Delivery O2 Flow Rate FiO2 04/03/17 11:21 98.6 77 22 129/67 (87) 96 Room Air 98.6 04/03/17 07:10 2.0 Weight Weight [ ] I.O. Intake and Output Intake and Output 04/03/17 07:00 Intake Total 540 ml Output Total 0 ml Balance 540 ml Intake Oral 540 ml Output Urine Total 0 ml # Voids 2 Labs Labs Laboratory Tests Test 04/02/17 16:13 04/02/17 20:19 04/03/17 05:00 04/03/17 07:10 Glucose (Fingerstick) 141 mg/dL (70-99) 125 mg/dL (70-99) 109 mg/dL (70-99) White Blood Count 7.1 x10^3/uL (4.0-11.0) Red Blood Count 3.30 x10^6/uL (3.50-5.40) Hemoglobin 8.7 g/dL (12.0-15.5) Hematocrit 28.5 % (36.0-47.0) Mean Corpuscular Volume 86 fL (79-100) Mean Corpuscular Hemoglobin 27 pg (25-35) Mean Corpuscular Hemoglobin Concent 31 g/dL (31-37) Red Cell Distribution Width 16.3 % (11.5-14.5) Platelet Count 308 x10^3/uL (140-400) Sodium Level 135 mmol/L (136-145) Potassium Level 4.2 mmol/L (3.5-5.1) Chloride Level 102 mmol/L (98-107) Carbon Dioxide Level 33 mmol/L (21-32) Anion Gap 0 (6-14) Blood Urea Nitrogen 25 mg/dL (7-20) Creatinine 4.7 mg/dL (0.6-1.0) Estimated GFR (Cockcroft-Gault) 10.0 Glucose Level 110 mg/dL (70-99) Calcium Level 6.5 mg/dL (8.5-10.1) Phosphorus Level 4.1 mg/dL (2.6-4.7) Magnesium Level 1.7 mg/dL (1.8-2.4) Albumin 1.6 g/dL (3.4-5.0) Test 04/03/17 11:19 Glucose (Fingerstick) 104 mg/dL (70-99) Micro Micro Microbiology 03/30/17 Blood Culture - Preliminary, Resulted NO GROWTH AFTER 3 DAYS 03/31/17 Aerobic Culture - Preliminary, Resulted 03/31/17 Aerobic Culture Result 1 (EMMA) - Preliminary, Resulted Review of Systems Constitutional: yes: alert, oriented Ears/Nose/Throat: Yes: no symptom reported Pulmonary: Yes no symptom reported Cardiovascular: Yes no symptom reported Gastrointestional: Yes: no symptom reported Musculoskeletal: Yes: no symptom reported Psychiatric/Neurological: Yes: no symptom reported Endocrine: Yes: no symptom reported Physical Exam General Appearance: no apparent distress Skin: warm Respiratory: bilateral CTA Heart: S1S2, RRR Abdomen: soft, bowel sounds present Genitourinary: bladder flat Extremities: pulses present Neurology: alert, oriented Musculoskeletal: Osteoarthritis Assessment Assessment IMP ANASARCA-RESOLVED SEVERE HYPOTHYROIDISM NON COMPLIANCE ESRD DM II HTN PLAN SHE HAS DONE WELL WITH HD WHILE HERE SHE WOULD LIKE TO TRAIN ON HOME HD PLAN IS TO DISCHARGE HER HOME TODAY IF OK WITH OTHER PHYSICIANS SHE WILL GO HOME AND RESUME HER PD WHILE SHE IS DOING PD SHE WILL GET TRAINED ON HOME HD-IF SHE DOES WELL WITH UNDERSTANDING THE PROCEDURE WE WILL CONVERT HER TO HOME HD SHE AGREES WITH THE PLAN HAVE ENCOURAGED COMPLIANCE WITH ALL HER MEDS ILAN ARELLANO MD Apr 03, 2017 12:02
--- NOTE | 2017-04-03 13:14 | PDOC3 ---
Discharge Summary Visit Information Date of Admission: Mar 30, 2017 Date of Discharge: Apr 03, 2017 Admitting Diagnosis: Pulmonary Edema. ESRD on PD, SEVERE HYPOTHYROIDISM Final Diagnosis Problems Medical Problems: (1) ESRD on peritoneal dialysis Status: Acute (2) Pulmonary edema Status: Acute (3) Volume overload Status: Acute Brief Hospital Course Allergies Allergies Coded Allergies Type Severity Reaction Last Updated Verified codeine Allergy Intermediate hives 10/22/15 Yes Vital Signs Vital Signs Date Time Temp Pulse Resp B/P (MAP) Pulse Ox O2 Delivery O2 Flow Rate FiO2 04/03/17 12:27 96 Nasal Cannula 1.0 04/03/17 11:21 98.6 77 22 129/67 (87) 98.6 Lab Results Laboratory Tests Test 04/01/17 16:41 04/01/17 20:41 04/02/17 03:55 04/02/17 07:05 Glucose (Fingerstick) 102 mg/dL (70-99) 105 mg/dL (70-99) 85 mg/dL (70-99) Sodium Level 139 mmol/L (136-145) Potassium Level 3.9 mmol/L (3.5-5.1) Chloride Level 103 mmol/L (98-107) Carbon Dioxide Level 32 mmol/L (21-32) Anion Gap 4 (6-14) Blood Urea Nitrogen 13 mg/dL (7-20) Creatinine 3.4 mg/dL (0.6-1.0) Estimated GFR (Cockcroft-Gault) 14.5 Glucose Level 87 mg/dL (70-99) Calcium Level 7.1 mg/dL (8.5-10.1) Phosphorus Level 3.4 mg/dL (2.6-4.7) Magnesium Level 1.7 mg/dL (1.8-2.4) Albumin 1.7 g/dL (3.4-5.0) Test 04/02/17 10:52 04/02/17 16:13 04/02/17 20:19 04/03/17 05:00 Glucose (Fingerstick) 91 mg/dL (70-99) 141 mg/dL (70-99) 125 mg/dL (70-99) White Blood Count 7.1 x10^3/uL (4.0-11.0) Red Blood Count 3.30 x10^6/uL (3.50-5.40) Hemoglobin 8.7 g/dL (12.0-15.5) Hematocrit 28.5 % (36.0-47.0) Mean Corpuscular Volume 86 fL (79-100) Mean Corpuscular Hemoglobin 27 pg (25-35) Mean Corpuscular Hemoglobin Concent 31 g/dL (31-37) Red Cell Distribution Width 16.3 % (11.5-14.5) Platelet Count 308 x10^3/uL (140-400) Sodium Level 135 mmol/L (136-145) Potassium Level 4.2 mmol/L (3.5-5.1) Chloride Level 102 mmol/L (98-107) Carbon Dioxide Level 33 mmol/L (21-32) Anion Gap 0 (6-14) Blood Urea Nitrogen 25 mg/dL (7-20) Creatinine 4.7 mg/dL (0.6-1.0) Estimated GFR (Cockcroft-Gault) 10.0 Glucose Level 110 mg/dL (70-99) Calcium Level 6.5 mg/dL (8.5-10.1) Phosphorus Level 4.1 mg/dL (2.6-4.7) Magnesium Level 1.7 mg/dL (1.8-2.4) Albumin 1.6 g/dL (3.4-5.0) Test 04/03/17 07:10 04/03/17 11:19 Glucose (Fingerstick) 109 mg/dL (70-99) 104 mg/dL (70-99) Laboratory Tests Test 04/02/17 16:13 04/02/17 20:19 04/03/17 05:00 04/03/17 07:10 Glucose (Fingerstick) 141 mg/dL (70-99) 125 mg/dL (70-99) 109 mg/dL (70-99) White Blood Count 7.1 x10^3/uL (4.0-11.0) Red Blood Count 3.30 x10^6/uL (3.50-5.40) Hemoglobin 8.7 g/dL (12.0-15.5) Hematocrit 28.5 % (36.0-47.0) Mean Corpuscular Volume 86 fL (79-100) Mean Corpuscular Hemoglobin 27 pg (25-35) Mean Corpuscular Hemoglobin Concent 31 g/dL (31-37) Red Cell Distribution Width 16.3 % (11.5-14.5) Platelet Count 308 x10^3/uL (140-400) Sodium Level 135 mmol/L (136-145) Potassium Level 4.2 mmol/L (3.5-5.1) Chloride Level 102 mmol/L (98-107) Carbon Dioxide Level 33 mmol/L (21-32) Anion Gap 0 (6-14) Blood Urea Nitrogen 25 mg/dL (7-20) Creatinine 4.7 mg/dL (0.6-1.0) Estimated GFR (Cockcroft-Gault) 10.0 Glucose Level 110 mg/dL (70-99) Calcium Level 6.5 mg/dL (8.5-10.1) Phosphorus Level 4.1 mg/dL (2.6-4.7) Magnesium Level 1.7 mg/dL (1.8-2.4) Albumin 1.6 g/dL (3.4-5.0) Test 04/03/17 11:19 Glucose (Fingerstick) 104 mg/dL (70-99) Brief Hospital Course The patient was admitted with marked fluid overlaod and was switched to HD and large amount of fluid were ultrafilterated She was found to be extremely hypothyroid with a TSH of 190 She wants to go on Home HD and will be discharged to continue on her peritoneal dialysis and will be trained and hopefully awitched to Home HD Compliance with medication was encouraged Discharge Information Follow Up: Weeks Disposition/Orders: D/C to Home Scheduled Amlodipine Besylate (Norvasc), 10 MG PO DAILY, (Reported) Atorvastatin Calcium (Lipitor), 40 MG PO QHS, (Reported) Buspirone Hcl (Buspirone Hcl), 1 TAB PO BID, (Reported) Carvedilol (Coreg), 1 TAB PO BID, (Reported) Cefpodoxime Proxetil (Cefpodoxime Proxetil), 200 MG PO DAILY Diphenoxylate Hcl/Atropine (Lomotil Tablet), 1 TAB PO TID Gabapentin (Gabapentin), 1 TAB PO DAILY, (Reported) Insulin Aspart (Novolog), 10 UNIT SQ TIDBFRMEAL, (Reported) Insulin Detemir (Levemir), 35 UNIT SQ HS, (Reported) Levothyroxine Sodium (Synthroid), 2 TAB PO DAILY06, (Reported) Lisinopril (Lisinopril), 1 TAB PO DAILY, (Reported) Oxycodone/Apap 5-325 (Percocet 5-325 Mg Tablet), 1-2 TAB PO Q4-6HRS Potassium Chloride (K-Tab ER), 40 MEQ PO DAILY, (Reported) Quetiapine Fumarate (Seroquel), 300 MG PO HS, (Reported) Quetiapine Fumarate (Seroquel), 1 TAB PO DAILY08, (Reported) Sevelamer Carbonate (Renvela), 2 TAB PO TIDBFRMEAL, (Reported) Valsartan (Diovan), 2 TAB PO HS, (Reported) Vit B Cmplx 3/Fa/Vit C/Biotin (Nephro-Colin Rx Tablet), 1 EACH PO DAILY, ( Reported) Scheduled PRN Sevelamer Carbonate (Renvela), 800 MG PO PRN BFRMEAL PRN for PER PROTOCOL, ( Reported) Miscellaneous Medications Insulin Aspart (Novolog), 100 UNIT SQ, (Reported) Vit B Cmplx 3/Fa/Vit C/Biotin (Nereida-Colin Rx Tablet), 1 EACH PO, (Reported) Patient Instructions Patient Instructions The patient was encouraged to take her medication regularly We will do Six Minutes walk to see if she qualify for home oxygen MAURICE RICHARD MD Apr 03, 2017 13:14
[2017-04-03 14:45] VITALS: BP 114/55
[2017-04-03 15:00] VITALS: BP 118/62
[2017-04-03 16:51] VITALS: BP 146/64
== END 2017-04-03 18:01 | disposition home or self-care (01) | DRG 280 ==
LOC: ER 11:09 → ED HOLD 16:09 → OBSVTOIN 16:09 → 5 NORTH 18:40
PROVIDERS: ADMIT Internal Medicine; ATTEND Internal Medicine
PROC: 5A1D60Z (ICD-10-PCS; principal; 2017-03-31)
DX: I13.2 Hypertensive heart and chronic kidney disease with heart failure and with stage 5 chronic kidney disease, or end stage renal disease (principal); I21.4 Non-ST elevation (NSTEMI) myocardial infarction; I50.33 Acute on chronic diastolic (congestive) heart failure; N18.6 End stage renal disease; D47.Z2 Castleman disease; N17.9 Acute kidney failure, unspecified; E78.5 Hyperlipidemia, unspecified; E78.00 Pure hypercholesterolemia, unspecified; G47.33 Obstructive sleep apnea (adult) (pediatric); K21.9 Gastro-esophageal reflux disease without esophagitis; E03.9 Hypothyroidism, unspecified; F20.9 Schizophrenia, unspecified; E10.22 Type 1 diabetes mellitus with diabetic chronic kidney disease; R09.02 Hypoxemia; F41.9 Anxiety disorder, unspecified; M19.90 Unspecified osteoarthritis, unspecified site; E10.42 Type 1 diabetes mellitus with diabetic polyneuropathy; D64.9 Anemia, unspecified; Z91.19 Patient's noncompliance with other medical treatment and regimen; Z99.2 Dependence on renal dialysis; Z88.5 Allergy status to narcotic agent; Z90.89 Acquired absence of other organs; Z79.899 Other long term (current) drug therapy; Z79.1 Long term (current) use of non-steroidal anti-inflammatories (NSAID); Z79.2 Long term (current) use of antibiotics; Z79.4 Long term (current) use of insulin; Z85.850 Personal history of malignant neoplasm of thyroid; Z82.49 Family history of ischemic heart disease and other diseases of the circulatory system; Z81.8 Family history of other mental and behavioral disorders
CPT/HCPCS: 36415; 71010; 74000; 80048; 80061; 80069; 80076; 82550; 82553; 82962; 83036; 83690; 83735; 83880; 84436; 84439; 84443; 84480; 84481; 84484; 85018; 85027; 87040; 87070; 87186; 93005; 93306; 94250; 94620; 94640; 94644; 94760; 96374; 96375; 96376; A6539; J0360; J0610; J0780; J0881; J1815; J1940; J2270; J2405; J7042; J7620; 97110; 97116; 99285-25